=== PATIENT | male | born 1960 | race Two or more races ===

== ENCOUNTER 2020-03-30 06:30 | Outpatient (REF) | payer OTHER, SELFPAY ==
[2020-03-30 08:27] LABS: Cholesterol 113 mg/dL; HDL Cholesterol 37 mg/dL; LDL Cholesterol Calculated 67 mg/dl; Triglycerides 48 mg/dL
== END 2020-03-30 06:31 | disposition home or self-care (01) ==
LOC: HO.LAB 06:30
PROVIDERS: Visit Provider Internal Medicine
DX: E78.5 Hyperlipidemia, unspecified (principal)
CPT/HCPCS: 80061

== ENCOUNTER → 2020-06-08 08:37 | Outpatient (BNVA) | payer OTHER, SELFPAY | PROVIDERS: PCP Internal Medicine; Visit Provider Internal Medicine ==

== ENCOUNTER 2020-06-19 08:54 | Outpatient (REF) | payer OTHER, MEDICARE, SELFPAY | END 2020-06-19 08:55 | disposition home or self-care (01) | LOC: HO.LAB 08:54 | PROVIDERS: Visit Provider Internal Medicine | DX: Z20.822 Contact with and (suspected) exposure to COVID-19 (principal) | CPT/HCPCS: 36415; C9803; U0003; U0005 ==

== ENCOUNTER 2020-07-01 06:14 | Outpatient (REF) | payer OTHER, MEDICARE, SELFPAY ==
[2020-07-01 07:29] LABS: Cholesterol 112 mg/dL; HDL Cholesterol 36 mg/dL; LDL Cholesterol Calculated 66 mg/dl; Triglycerides 50 mg/dL
== END 2020-07-01 06:15 | disposition home or self-care (01) ==
LOC: HO.LAB 06:14
PROVIDERS: Visit Provider Internal Medicine
DX: E11.9 Type 2 diabetes mellitus without complications (principal)
CPT/HCPCS: 36415; 80061

== ENCOUNTER 2020-10-15 06:03 | Outpatient (REF) | payer OTHER, SELFPAY ==
[2020-10-15 07:34] LABS: Cholesterol 115 mg/dL; HDL Cholesterol 38 mg/dL; LDL Cholesterol Calculated 68 mg/dl; Triglycerides 49 mg/dL
== END 2020-10-15 06:04 | disposition home or self-care (01) ==
LOC: HO.LAB 06:03
PROVIDERS: PCP Internal Medicine; Visit Provider Internal Medicine
DX: Z00.00 Encounter for general adult medical examination without abnormal findings (principal); E11.9 Type 2 diabetes mellitus without complications
CPT/HCPCS: 36415; 80061

== ENCOUNTER → 2020-11-23 08:24 | Outpatient (BNVA) | payer OTHER, SELFPAY | PROVIDERS: PCP Internal Medicine; Referring Provider Internal Medicine; Visit Provider Internal Medicine | DX: I25.10 Atherosclerotic heart disease of native coronary artery without angina pectoris (principal); I95.1 Orthostatic hypotension; E78.5 Hyperlipidemia, unspecified; Z95.1 Presence of aortocoronary bypass graft | CPT/HCPCS: 93005 ==

== ENCOUNTER 2020-12-07 13:08 | Outpatient (REF) | payer OTHER, SELFPAY ==
--- NOTE | ~2020-12-07 | XR_ITS ---
EXAMINATION: XR CHEST CLINICAL INFORMATION: Cough COMPARISON: Previous chest x-ray September 2016 TECHNIQUE: 2 views of the chest were obtained. FINDINGS: The cardiac and mediastinal contours are stable. There are post-CABG changes. The lungs are clear. There is no pleural effusion or pneumothorax. Bony structures are normal. XR/XR chest 2V IMPRESSION: No evidence for acute disease in the chest.
== END 2020-12-07 13:09 | disposition home or self-care (01) ==
LOC: HO.HMGCX 13:08
PROVIDERS: PCP Internal Medicine; Visit Provider Nurse Practitioner Family
DX: Z13.89 Encounter for screening for other disorder (principal)
CPT/HCPCS: 71046

== ENCOUNTER 2020-12-07 13:11 | Outpatient (REF) | payer OTHER, SELFPAY | END 2020-12-07 13:12 | disposition home or self-care (01) | LOC: HO.LAB 13:11 | PROVIDERS: Visit Provider Nurse Practitioner Family | DX: Z20.822 Contact with and (suspected) exposure to COVID-19 (principal); R05 Cough | CPT/HCPCS: U0003; U0005 ==

== ENCOUNTER 2021-02-09 06:13 | Outpatient (REF) | payer OTHER, SELFPAY ==
[2021-02-09 07:02] LABS: MANUAL DIFF FLAG NO
[2021-02-09 07:13] LABS: Basophils Percent Auto 0.4 % (0-2); Eosinophils Absolute Auto 0.1 X10*3/uL (0.0-0.4); Eosinophils Percent Auto 2.9 % (0-4); Hematocrit 47.1 % (42-52); Hemoglobin 15.2 g/dl (14.0-18.0); Imm Gran Abs Auto 0.01 X10*3/uL (0.00-0.03); Imm Gran Pct Auto 0.2 % (0.0-0.4); Lymphocytes Absolute Auto 1.6 X10*3/uL (1.2-4.9); Lymphocytes Percent Auto 33.9 % (20-40); Mean Corpuscular HGB Conc 32.3 g/dl (31.0-36.0); Mean Corpuscular Hemoglobin 28.5 pg (27.0-33.0); Mean Corpuscular Volume 88.2 fL (80-98); Mean Platelet Volume 11.3 fL (9.4-12.4); Monocytes Absolute Auto 0.5 X10*3/uL (0.1-1.2); Monocytes Percent Auto 10.4 % (2-11); Neutrophils Absolute Auto 2.5 X10*3/uL (2.0-8.3); Neutrophils Percent Auto 52.2 % (45-73); Platelet Count 148 X10*3/uL (160-400); Red Blood Count 5.34 X10*6/uL (4.60-5.80); Red Cell Distribution Width 14.7 % (11.0-16.0); White Blood Count 4.8 X10*3/uL (4.8-10.8)
[2021-02-09 07:36] LABS: Alanine Aminotransferase 33 U/L (0-40); Albumin Level 4.2 g/dL (3.5-5.0); Alkaline Phosphatase 65 U/L (39-117); Anion Gap 10 (12-20); Aspartate Amino Transferase 25 U/L (5-37); Bilirubin Total 0.7 mg/dL (0.0-1.0); Blood Urea Nitrogen 15 mg/dL (9-16); Calcium 8.9 mg/dL (8.4-10.2); Carbon Dioxide 27 mmol/L (22-29); Chloride 108 mmol/L (96-108); Cholesterol 120 mg/dL; Estimated Glomerular Filt Rate > 60; Glucose Fasting 106 mg/dL (60-99); HDL Cholesterol 40 mg/dL; LDL Cholesterol Calculated 71 mg/dl; Potassium 4.4 mmol/L (3.3-5.1); Sodium 141 mmol/L (135-145); Total Protein 6.5 g/dL (6.5-8.0); Triglycerides 47 mg/dL
== END 2021-02-09 06:14 | disposition home or self-care (01) ==
LOC: HO.LAB 06:13
PROVIDERS: PCP Internal Medicine; Visit Provider Internal Medicine
DX: Z00.00 Encounter for general adult medical examination without abnormal findings (principal); E11.9 Type 2 diabetes mellitus without complications
CPT/HCPCS: 36415; 80053; 80061; 85025

== ENCOUNTER → 2021-05-17 08:08 | Outpatient (BNVA) | payer OTHER, SELFPAY | PROVIDERS: PCP Internal Medicine; Referring Provider Internal Medicine; Visit Provider Internal Medicine | DX: I25.10 Atherosclerotic heart disease of native coronary artery without angina pectoris (principal); I95.1 Orthostatic hypotension; E78.5 Hyperlipidemia, unspecified; Z95.1 Presence of aortocoronary bypass graft | CPT/HCPCS: 93005 ==

== ENCOUNTER 2021-06-14 06:00 | Outpatient (REF) | payer OTHER, SELFPAY ==
--- NOTE | ~2021-06-14 | XR_ITS ---
EXAMINATION: XR HAND, RIGHT CLINICAL INFORMATION: Pain in hand. COMPARISON: None TECHNIQUE: PA, lateral, and oblique views of the right hand. FINDINGS: There is partial amputation of proximal end of distal phalanx 2nd digit. There is no visible acute fracture or dislocation or subluxation seen. No bony erosive changes. A solitary staple is seen along the distal radial soft tissue from intervention. No soft tissue swelling seen. XR/XR hand RT 2V IMPRESSION: No abnormality seen right hand especially along the 1st metacarpal. 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
[2021-06-14 06:09] LABS: MANUAL DIFF FLAG NO
[2021-06-14 07:33] LABS: Basophils Percent Auto 0.6 % (0-2); Eosinophils Absolute Auto 0.2 X10*3/uL (0.0-0.4); Eosinophils Percent Auto 2.9 % (0-4); Hematocrit 47.1 % (42.0-52.0); Hemoglobin 15.1 g/dl (14.0-18.0); Imm Gran Abs Auto 0.01 X10*3/uL (0.00-0.03); Imm Gran Pct Auto 0.2 % (0.0-0.4); Lymphocytes Absolute Auto 1.9 X10*3/uL (1.2-4.9); Lymphocytes Percent Auto 36.3 % (20-40); Mean Corpuscular HGB Conc 32.1 g/dl (31.0-36.0); Mean Corpuscular Hemoglobin 28.3 pg (27.0-33.0); Mean Corpuscular Volume 88.4 fL (80.0-98.0); Mean Platelet Volume 11.2 fL (9.4-12.4); Monocytes Absolute Auto 0.6 X10*3/uL (0.1-1.2); Monocytes Percent Auto 11.3 % (2-11); Neutrophils Absolute Auto 2.5 x10*3/uL (2.0-8.3); Neutrophils Percent Auto 48.7 % (45-73); Platelet Count 158 X10*3/uL (160-400); Red Blood Count 5.33 X10*6/uL (4.60-5.80); Red Cell Distribution Width 14.6 % (11.0-16.0); White Blood Count 5.1 X10*3/uL (4.8-10.8)
[2021-06-14 07:50] LABS: Alanine Aminotransferase 26 U/L (0-40); Albumin Level 4.3 g/dL (3.5-5.0); Alkaline Phosphatase 59 U/L (39-117); Anion Gap 12 (12-20); Aspartate Amino Transferase 25 U/L (5-37); Bilirubin Total 0.5 mg/dL (0.0-1.0); Blood Urea Nitrogen 23 mg/dL (9-16); Calcium 9.1 mg/dL (8.4-10.2); Carbon Dioxide 26 mmol/L (22-29); Chloride 105 mmol/L (96-108); Cholesterol 118 mg/dL; Estimated Glomerular Filt Rate > 60; Glucose Fasting 94 mg/dL (60-99); HDL Cholesterol 38 mg/dL; LDL Cholesterol Calculated 70 mg/dl; Potassium 4.4 mmol/L (3.3-5.1); Sodium 139 mmol/L (135-145); Total Protein 6.7 g/dL (6.5-8.0); Triglycerides 50 mg/dL
[2021-06-14 08:15] LABS: Thyroid Stimulating Hormone 5.89 uIU/mL (0.32-4.0)
== END 2021-06-14 06:01 | disposition home or self-care (01) ==
LOC: HO.LAB 06:00
PROVIDERS: PCP Internal Medicine; Visit Provider Internal Medicine
DX: Z00.00 Encounter for general adult medical examination without abnormal findings (principal); Z13.0 Encounter for screening for diseases of the blood and blood-forming organs and certain disorders involving the immune mechanism; M79.641 Pain in right hand
CPT/HCPCS: 36415; 73120; 80053; 80061; 84443; 85025

== ENCOUNTER 2021-09-06 06:02 | Outpatient (REF) | payer OTHER, SELFPAY ==
[2021-09-06 08:02] LABS: Cholesterol 109 mg/dL; HDL Cholesterol 37 mg/dL; LDL Cholesterol Calculated 62 mg/dl; Triglycerides 51 mg/dL
== END 2021-09-06 06:03 | disposition home or self-care (01) ==
LOC: HO.LAB 06:02
PROVIDERS: PCP Internal Medicine; Visit Provider Internal Medicine
DX: Z00.00 Encounter for general adult medical examination without abnormal findings (principal)
CPT/HCPCS: 36415; 80061

== ENCOUNTER 2022-02-26 10:36 | Outpatient (REF) | payer OTHER, SELFPAY ==
[2022-02-26 12:42] LABS: Influenza A PCR NEGATIVE (Negative); Influenza B PCR NEGATIVE (Negative); Resp Syncy Virus RNA Qual PCR NEGATIVE (Negative); SARS COV2 PCR INHOUSE NEGATIVE (Negative)
== END 2022-02-26 10:37 | disposition home or self-care (01) ==
LOC: HO.LAB 10:36
PROVIDERS: Visit Provider Nurse Practitioner Acute Care
DX: R68.89 Other general symptoms and signs (principal); Z20.822 Contact with and (suspected) exposure to COVID-19
CPT/HCPCS: 0241U

== ENCOUNTER 2022-03-19 07:09 | Outpatient (REF) | payer OTHER, SELFPAY ==
[2022-03-19 08:13] LABS: Cholesterol 125 mg/dL; HDL Cholesterol 43 mg/dL; LDL Cholesterol Calculated 73 mg/dl; Triglycerides 48 mg/dL
== END 2022-03-19 07:10 | disposition home or self-care (01) ==
LOC: HO.LAB 07:09
PROVIDERS: PCP Internal Medicine; Visit Provider Internal Medicine
DX: E78.5 Hyperlipidemia, unspecified (principal)
CPT/HCPCS: 36415; 80061

== ENCOUNTER → 2022-06-28 12:18 | Outpatient (BNVA) | payer OTHER, SELFPAY | PROVIDERS: PCP Internal Medicine; Referring Provider Internal Medicine; Visit Provider Internal Medicine | DX: I25.10 Atherosclerotic heart disease of native coronary artery without angina pectoris (principal); I95.1 Orthostatic hypotension; E78.5 Hyperlipidemia, unspecified; Z95.1 Presence of aortocoronary bypass graft | CPT/HCPCS: 93005 ==

== ENCOUNTER 2022-08-12 06:06 | Outpatient (REF) | payer OTHER, SELFPAY ==
[2022-08-12 06:14] LABS: MANUAL DIFF FLAG NO
[2022-08-12 07:38] LABS: Basophils Percent Auto 0.7 % (0-2); Eosinophils Absolute Auto 0.2 X10*3/uL (0.0-0.4); Hematocrit 46.3 % (42.0-52.0); Hemoglobin 15.3 g/dl (14.0-18.0); Imm Gran Abs Auto 0.02 X10*3/uL (0.00-0.03); Imm Gran Pct Auto 0.4 % (0.0-0.4); Lymphocytes Absolute Auto 1.6 X10*3/uL (1.2-4.9); Lymphocytes Percent Auto 28.9 % (20-40); Mean Corpuscular Volume 87.9 fL (80.0-98.0); Mean Platelet Volume 10.6 fL (9.4-12.4); Monocytes Absolute Auto 0.5 X10*3/uL (0.1-1.2); Monocytes Percent Auto 9.5 % (2-11); Neutrophils Absolute Auto 3.1 x10*3/uL (2.0-8.3); Neutrophils Percent Auto 57.5 % (45-73); Platelet Count 147 X10*3/uL (160-400); Red Blood Count 5.27 X10*6/uL (4.60-5.80); Red Cell Distribution Width 14.6 % (11.0-16.0); White Blood Count 5.4 X10*3/uL (4.8-10.8)
[2022-08-12 08:18] LABS: Alanine Aminotransferase 26 U/L (0-40); Albumin Level 4.1 g/dL (3.5-5.0); Alkaline Phosphatase 53 U/L (39-117); Anion Gap 12 (12-20); Aspartate Amino Transferase 22 U/L (5-37); Bilirubin Total 0.6 mg/dL (0.0-1.0); Blood Urea Nitrogen 15 mg/dL (9-16); Calcium 8.7 mg/dL (8.4-10.2); Carbon Dioxide 25 mmol/L (22-29); Chloride 106 mmol/L (96-108); Cholesterol 124 mg/dL; Estimated Glomerular Filt Rate > 60; Glucose Fasting 98 mg/dL (60-99); HDL Cholesterol 43 mg/dL; LDL Cholesterol Calculated 72 mg/dl; Potassium 4.2 mmol/L (3.3-5.1); Sodium 139 mmol/L (135-145); Triglycerides 47 mg/dL
[2022-08-12 08:22] LABS: Prostate Specific Antigen Scr 0.84 ng/mL (<0.05-4.0); Thyroid Stimulating Hormone 3.83 uIU/mL (0.32-4.0)
== END 2022-08-12 06:07 | disposition home or self-care (01) ==
LOC: HO.LAB 06:06
PROVIDERS: PCP Internal Medicine; Visit Provider Internal Medicine
DX: Z00.00 Encounter for general adult medical examination without abnormal findings (principal); Z12.5 Encounter for screening for malignant neoplasm of prostate; N28.9 Disorder of kidney and ureter, unspecified; D64.9 Anemia, unspecified; E03.9 Hypothyroidism, unspecified; E78.5 Hyperlipidemia, unspecified
CPT/HCPCS: 36415; 80053; 80061; 84153; 84443; 85025

== ENCOUNTER 2023-01-17 06:32 | Outpatient (REF) | payer OTHER, SELFPAY ==
[2023-01-17 08:16] LABS: Cholesterol 133 mg/dL (<200); HDL Cholesterol 44 mg/dL (>40); LDL Cholesterol Calculated 78 mg/dL (<100); Triglycerides 56 mg/dL (<150)
== END 2023-01-17 06:33 | disposition home or self-care (01) ==
LOC: HO.LAB 06:32
PROVIDERS: PCP Internal Medicine; Visit Provider Internal Medicine
DX: E78.5 Hyperlipidemia, unspecified (principal)
CPT/HCPCS: 36415; 80061

== ENCOUNTER 2023-01-20 08:39 | Outpatient (AMB) | payer OTHER, SELFPAY ==
[2023-01-20 08:42] VITALS: BP 110/68; PULSE 75; O2SAT 98; BMI 26.1
--- NOTE | 2023-01-20 08:42 | MHC.PC.OV ---
Vital Signs 01/20/23 08:42 Height 5 ft 3 in Weight 147 lb 2 oz BMI 26.1 BP 110/68 Blood Pressure Location Lt brachial Position Sitting Pulse 75 Pulse Source Pulse Oximeter Pulse Oximetry (%) 98 Oxygen Delivery Method Room Air Intake Visit Reasons: 3mth f/u Chief Vendor Quality: Not Required per policy Accompanied by: Self / Same As Patient Allergies No Known Allergies Allergy (Verified 01/20/23 08:42) Medication List - Last Reconciled 01/20/23 by Ismael Dimas MD aspirin 81 mg PO DAILY atorvastatin 80 mg PO DAILY nitroglycerin 0.4 mg sublingual Q5M PRN Tobacco use date assessed: 08/03/22 Dental Screening Dental Screen Date: 01/20/23 Did you have a dental visit in the last 12 months?: Yes Did you have a dental problem in the last 6 months where you did not have access to dental care?: No Was dental information given to patient?: Patient has dentist HPI 3mth f/u HPI Details hyperlipidemia on rx; doing well; compliant [facility] Medical History Other and unspecified hyperlipidemia Orthostatic hypotension Atherosclerotic cardiovascular disease Hyperlipidemia Surgical History Status post coronary artery bypass graft History of cardiac catheterization (~11/30/12) H/O heart bypass surgery (~02/26/13) History of tonsillectomy Family History Father Pulmonary embolism Mother Hypertension Heart disease Family/Other Diabetes CAD (coronary artery disease) Social History Housing: House Alcohol intake: current Alcohol intake frequency: holidays/special occasions only Alcohol type: wine Patient Tobacco Use Status: Never used Tobacco e-Cigarette/Vaping Use: Never Used Second Hand Smoke Exposure: No service: No Current occupational status: disabled Cognitive needs: No Hearing needs: No Vision needs: Yes Questionnaire PHQ-9 Over the last 2 weeks, how often have you been bothered by any of the following problems? 1. Little interest or pleasure in doing things: not at all 2. Feeling down, depressed, or hopeless: not at all 3. Trouble falling or staying asleep, or sleeping too much: not at all 4. Feeling tired or having little energy: not at all 5. Poor appetite or overeating: not at all 6. Feeling bad about yourself - or that you are a failure or have let yourself or your family down: not at all 7. Trouble concentrating on things, such as reading the newspaper or watching television: not at all 8. Moving or speaking so slowly that other people could have noticed. Or the opposite - being so fidgety or restless that you have been moving around a lot more than usual: not at all 9. Thoughts that you would be better off or of hurting yourself in some way: not at all Total score: 0 Depression Screening Interpretation: Negative Source: Developed by Drs. Chidi Carrillo, Abhilash Nieves and colleagues, with an educational iris from [employer]. Thrive Questionnaire Date Thrive assessed: 07/13/22 AUDIT C Alcohol Use Questionnaire (AUDIT-C) 1. How often do you have a drink containing alcohol?: Never Total Score: 0 Score Reviewed/Action Taken: Yes CARISSA-7 AMB Questionnaire CARISSA-7 Date CARISSA - 7 assessed: 08/03/22 Source: Developed by Drs. Chidi Carrillo, Annette Paulino, Abhilash Monteiro and colleagues, with an educational iris from [employer]. Review of Systems Const Denies chills, Denies headache(s) and Denies weight loss ENT Denies headache(s) Card Denies chest pain, Denies syncope, Denies irregular heart rhythm and Denies dyspnea Resp Denies chest congestion, Denies cough and Denies dyspnea GI Denies abdominal pain, Denies change in stool character, Denies nausea and Denies vomiting Musc Denies deformity and Denies joint swelling Neuro Denies syncope and Denies headache(s) Physical exam (Primary Care) Vital Signs: Last Vital Signs Pulse 75 01/20/23 08:42 BP 110/68 01/20/23 08:42 Pulse Ox 98 01/20/23 08:42 Oxygen Delivery Method Room Air 01/20/23 08:42 BMI result Body Mass Index 26.1 Tobacco/Smoking Status: Tobacco use Status Tobacco use date assessed 08/03/22 01/20/23 08:47 Patient Tobacco Use Status Never used Tobacco 01/20/23 08:47 e-Cigarette/Vaping Use Never Used 01/20/23 08:47 PHQ-9: PHQ-9 Score PHQ-9: Total score 0 01/20/23 08:47 Depression Screening Interpretation: Negative Thrive Assessment: Date of Thrive Assessment Date Thrive assessed 07/13/22 01/20/23 08:47 Const General: cooperative, comfortable, no acute distress and alert Neck Neck: Yes no lymphadenopathy Thyroid: Thyroid normal Resp Effort & Inspection: normal respiratory effort Auscultation: clear to auscultation bilaterally Percussion: percussion normal Cardio Jugular venous distension: no JVD Palpation: normal PMI Rate: regular rate Rhythm: regular rhythm Heart sounds: S1 normal heart sound present and S2 normal heart sound present GI Inspection: Yes normal to inspection Palpation (GI): No hepatosplenomegaly present Skin General skin exam: no rashes or lesions noted Extrem General: Yes no clubbing, cyanosis or edema Assessment and Plan Assessment & Plan (1) Other and unspecified hyperlipidemia: Code(s): E78.5 - Hyperlipidemia, unspecified Plan: stable; samee rx Orders: Orders Lipid Panel Today E78.5 - Hyperlipidemia, unspecified Coding Level of Care Code Est Pt Level 3 (91121) Diagnoses Other and unspecified hyperlipidemia E78.5
== END 2023-01-20 08:56 | disposition home or self-care (01) ==
PROVIDERS: PCP Internal Medicine; Visit Provider Internal Medicine
DX: E78.5 Hyperlipidemia, unspecified (principal)
CPT/HCPCS: 99213

== ENCOUNTER 2023-02-13 08:49 | Outpatient (AMB) | payer OTHER, SELFPAY ==
--- NOTE | 2023-02-13 08:57 | AM.OFFVISNUR ---
Intake Intake Visit Reasons: Flu shot Allergies No Known Allergies Allergy (Verified 01/20/23 08:42) Office Procedures Flu Questionnaire Does the patient have a severe egg allergy?: No Does the patient have severe life threatening allergies?: No Does the patient have a fever or illness today?: No Has the patient ever had Guillain-[place] Syndrome?: No Has the patient ever had any past reaction to a flu shot?: No Immunizations flu vacc [id number] 6mos up(PF) 60 mcg(15 mcgx4)/0.5 mL IM syringe Performing Provider: Ismael Dimas MD Performing Location: [facility] Administered by: Rose Peters RN on 02/13/23 08:57 Dose Route Admin Location Dispensed Lot Number Expiration Date NDC Automatic Transmission Mechanic 0.5 mL IM Left Deltoid 0.5 mL [id number] 11/12/23 55818-005-75 [employer] VIS Given Date VIS Provided VIS Publication Date 02/13/23 Single Vaccine 20 Eligibility Eligibility Date Funding Source Not [facility] Eligible 02/13/23 Private Coding Assessment & Plan Assessment & Plan Orders: Orders Influenza [id number] Immunization Today Z23 - Encounter for immunization
== END 2023-02-13 08:59 | disposition home or self-care (01) ==
PROVIDERS: PCP Internal Medicine; Visit Provider Internal Medicine
DX: Z23 Encounter for immunization (principal)
CPT/HCPCS: 90471; 90686

== ENCOUNTER 2023-04-20 09:01 | Outpatient (REF) | payer OTHER, SELFPAY ==
[2023-04-20 10:34] LABS: Cholesterol 115 mg/dL (<200); HDL Cholesterol 38 mg/dL (>40); LDL Cholesterol Calculated 69 mg/dL (<100); Triglycerides 41 mg/dL (<150)
== END 2023-04-20 09:02 | disposition home or self-care (01) ==
LOC: HO.LAB 09:01
PROVIDERS: PCP Internal Medicine; Visit Provider Internal Medicine
DX: E78.5 Hyperlipidemia, unspecified (principal)
CPT/HCPCS: 36415; 80061

== ENCOUNTER 2023-04-24 08:43 | Outpatient (AMB) | payer OTHER, SELFPAY ==
[2023-04-24 08:45] VITALS: BP 116/62; PULSE 80; O2SAT 99; BMI 26.2
--- NOTE | 2023-04-24 08:45 | MHC.PC.OV ---
Vital Signs 04/24/23 08:45 Height 5 ft 3 in Weight 148 lb BMI 26.2 BP 116/62 Blood Pressure Location Lt brachial Position Sitting Pulse 80 Pulse Source Pulse Oximeter Pulse Oximetry (%) 99 Oxygen Delivery Method Room Air Intake Visit Reasons: 3mth f/u Photography Coordinator Required: No Paediatric Physiotherapist: Not Required per policy Accompanied by: Self / Same As Patient Allergies No Known Allergies Allergy (Verified 01/20/23 08:42) Tobacco use date assessed: 08/03/22 Dental Screening Dental Screen Date: 04/24/23 Did you have a dental visit in the last 12 months?: Yes Did you have a dental problem in the last 6 months where you did not have access to dental care?: No Was dental information given to patient?: Patient has dentist HPI 3mth f/u HPI Details Hyperlipidemia on rx; doing well; compliant [facility] Medical History Other and unspecified hyperlipidemia Orthostatic hypotension Atherosclerotic cardiovascular disease Hyperlipidemia Surgical History Status post coronary artery bypass graft History of cardiac catheterization (~11/30/12) H/O heart bypass surgery (~02/26/13) History of tonsillectomy Family History Father Pulmonary embolism Mother Hypertension Heart disease Family/Other Diabetes CAD (coronary artery disease) Social History Housing: House Alcohol intake: current Alcohol intake frequency: holidays/special occasions only Alcohol type: wine Patient Tobacco Use Status: Never used Tobacco e-Cigarette/Vaping Use: Never Used Second Hand Smoke Exposure: No service: No Current occupational status: disabled Cognitive needs: No Hearing needs: No Vision needs: Yes Questionnaire Thrive Questionnaire Date Thrive assessed: 07/13/22 CARISSA-7 AMB Questionnaire CARISSA-7 Date CARISSA - 7 assessed: 08/03/22 Source: Developed by Drs. Chidi Carrillo, Annette Paulino, Abhilash Monteiro and colleagues, with an educational iris from [employer]. Review of Systems Const Denies chills, Denies headache(s) and Denies weight loss ENT Denies headache(s) Card Denies chest pain, Denies syncope, Denies irregular heart rhythm and Denies dyspnea Resp Denies chest congestion, Denies cough and Denies dyspnea GI Denies abdominal pain, Denies change in stool character, Denies nausea and Denies vomiting Musc Denies deformity and Denies joint swelling Neuro Denies syncope and Denies headache(s) Physical exam (Primary Care) Vital Signs: Last Vital Signs Pulse 80 04/24/23 08:45 BP 116/62 04/24/23 08:45 Pulse Ox 99 04/24/23 08:45 Oxygen Delivery Method Room Air 04/24/23 08:45 BMI result Body Mass Index 26.2 Tobacco/Smoking Status: Tobacco use Status Tobacco use date assessed 08/03/22 04/24/23 08:45 Patient Tobacco Use Status Never used Tobacco 04/24/23 08:45 e-Cigarette/Vaping Use Never Used 04/24/23 08:45 Thrive Assessment: Date of Thrive Assessment Date Thrive assessed 07/13/22 04/24/23 08:45 Const General: cooperative, comfortable, no acute distress and alert Neck Neck: Yes no lymphadenopathy Thyroid: Thyroid normal Resp Effort & Inspection: normal respiratory effort Auscultation: clear to auscultation bilaterally Percussion: percussion normal Cardio Jugular venous distension: no JVD Palpation: normal PMI Rate: regular rate Rhythm: regular rhythm Heart sounds: S1 normal heart sound present and S2 normal heart sound present GI Inspection: Yes normal to inspection Palpation (GI): No hepatosplenomegaly present Skin General skin exam: no rashes or lesions noted Extrem General: Yes no clubbing, cyanosis or edema Assessment and Plan Assessment & Plan (1) Hyperlipidemia: Code(s): E78.5 - Hyperlipidemia, unspecified Plan: stable; same rx Orders: Orders Lipid Panel Today E78.5 - Hyperlipidemia, unspecified Coding Level of Care Code Est Pt Level 3 (48048) Diagnoses Hyperlipidemia E78.5
== END 2023-04-24 08:57 | disposition home or self-care (01) ==
PROVIDERS: PCP Internal Medicine; Visit Provider Internal Medicine
DX: E78.5 Hyperlipidemia, unspecified (principal)
CPT/HCPCS: 99213

== ENCOUNTER 2023-07-06 09:39 | Outpatient (AMB) | payer OTHER, SELFPAY ==
--- NOTE | 2023-07-06 09:44 | A.OFFVIS_ITS ---
Intake Vital Signs 07/06/23 09:45 Height 5 ft 3 in Weight 149 lb 7.574 oz BMI 26.5 BP 110/68 Blood Pressure Location Lt brachial Position Sitting Pulse 76 Pulse Source Pulse Oximeter Pulse Oximetry (%) 100 Oxygen Delivery Method Room Air Intake Visit Reasons: 1 year follow up Intake Note: pt presents for a 1 year follow up with EKG Allergies No Known Allergies Allergy (Verified 07/06/23 09:50) Medication List - Last Reconciled 07/06/23 by Carlito Garland MD aspirin 81 mg PO DAILY atorvastatin 80 mg PO DAILY nitroglycerin 0.4 mg sublingual Q5M PRN HPI HPI Comments History of Present Illness Details Galo returns for follow-up regarding coronary disease. Overall, he is doing fine. No cardiac symptoms whatsoever. PFS Medical History Other and unspecified hyperlipidemia Orthostatic hypotension Atherosclerotic cardiovascular disease Hyperlipidemia Surgical History Status post coronary artery bypass graft History of cardiac catheterization (~11/30/12) H/O heart bypass surgery (~02/26/13) History of tonsillectomy Family History Father Pulmonary embolism Mother Hypertension Heart disease Family/Other Diabetes CAD (coronary artery disease) Social History Housing: House Alcohol intake: current Alcohol intake frequency: holidays/special occasions only Alcohol type: wine Patient Tobacco Use Status: Never used Tobacco e-Cigarette/Vaping Use: Never Used Second Hand Smoke Exposure: No service: No Current occupational status: disabled Cognitive needs: No Hearing needs: No Vision needs: Yes Review of Systems Const All systems reviewed & are unremarkable except as noted in HPI and below Reports as per HPI and Reports no additional complaints Eyes Reports as per HPI and Denies no additional complaints ENT Denies no additional complaints and Reports as per HPI Card Denies as per HPI, Denies no additional complaints, Denies acrocyanosis, Denies chest pain, Denies chest pain at rest, Denies chest pain with activity, Denies diaphoresis, Denies syncope, Denies rapid heart rate, Denies pedal edema, Denies edema, Denies irregular heart rhythm, Denies claudication, Denies leg ulcers, Denies leg edema, Denies lightheadedness, Denies radiating jaw, neck or arm pain, Denies palpitations, Denies dyspnea, Denies dyspnea on exertion, Denies orthopnea, Denies paroxysmal nocturnal dyspnea, Denies slow heart rate and Denies other Resp Denies dyspnea and Denies dyspnea on exertion GI Reports as per HPI and Denies no additional complaints Reports no additional complaints and Reports as per HPI Musc Reports no additional complaints and Reports as per HPI Skin/Breast Reports system reviewed and no additional complaints, except as documented Neuro Denies syncope Psych Reports no additional complaints and Reports as per HPI Endo Denies palpitations [place]/Lymph Reports no additional complaints and Reports as per HPI Aller/Immun Reports no additional complaints and Reports as per HPI Physical Exam Vital Signs: Last Vital Signs Pulse 76 07/06/23 09:45 BP 110/68 07/06/23 09:45 Pulse Ox 100 07/06/23 09:45 Oxygen Delivery Method Room Air 07/06/23 09:45 BMI result Body Mass Index 26.5 Const General: comfortable and no acute distress Orientation/consciousness: patient oriented x3 HEENT Other: Unremarkable Head: Yes normal to inspection Neck Neck: Yes normal visual inspection Chest Chest palpation & inspection: normal inspection of the chest Resp Auscultation: clear to auscultation bilaterally Cardio Palpation: normal PMI Heart sounds: S1 normal heart sound present, S2 normal heart sound present, no gallops, no murmurs and no rubs GI Palpation (GI): Soft to palpation Back/Spine/Pelvis Other: unremarkable Skin General skin exam: no rashes or lesions noted Neuro General: patient oriented x3 Extrem General: Yes normal to inspection Psych Mental Status: mental status grossly normal Office Procedures EKG Details: EKG with sinus rhythm at 70/Min; no significant ST-T changes and otherwise unremarkable[place] [id number], Complete Assessment & Plan Assessment & Plan (1) Atherosclerotic cardiovascular disease: Code(s): I25.10 - Atherosclerotic heart disease of [place] coronary artery without angina pectoris (2) Status post coronary artery bypass graft: Code(s): Z95.1 - Presence of aortocoronary bypass graft (3) Orthostatic hypotension: Code(s): I95.1 - Orthostatic hypotension (4) Other and unspecified hyperlipidemia: Code(s): E78.5 - Hyperlipidemia, unspecified Plan Cardiac data- Myocardial perfusion imaging study from 2018 with likely normal perfusion. Echocardiogram from 2020 shows normal LVEF at 60-65% and mild mitral regurgitation. Overall, stable. Continue aspirin, statins. Lipids are well controlled. He has had syncope in the past and also runs lowish blood pressures. Hence, beta-blockers discontinued in the past. We will see him in 1 year. In the interim, he will call with concerns. Coding Level of Care Code Est Pt Level 3 (86316) Diagnoses Atherosclerotic cardiovascular disease I25.10 Status post coronary artery bypass graft Z95.1 Orthostatic hypotension I95.1 Other and unspecified hyperlipidemia E78.5 CPT Codes EKG - CPT: [id number], Complete ([id number])
[2023-07-06 09:45] VITALS: BP 110/68; PULSE 76; O2SAT 100; BMI 26.5
== END 2023-07-06 10:03 | disposition home or self-care (01) ==
PROVIDERS: PCP Internal Medicine; Visit Provider Internal Medicine
DX: I25.10 Atherosclerotic heart disease of native coronary artery without angina pectoris (principal); Z95.1 Presence of aortocoronary bypass graft; I95.1 Orthostatic hypotension; E78.5 Hyperlipidemia, unspecified
CPT/HCPCS: 93010; 99213

== ENCOUNTER → 2023-07-06 09:39 | Outpatient (BNVA) | payer OTHER, SELFPAY | PROVIDERS: PCP Internal Medicine; Visit Provider Internal Medicine | DX: I25.10 Atherosclerotic heart disease of native coronary artery without angina pectoris (principal); I95.1 Orthostatic hypotension; E78.5 Hyperlipidemia, unspecified; Z95.1 Presence of aortocoronary bypass graft; Z79.82 Long term (current) use of aspirin; Z79.899 Other long term (current) drug therapy | CPT/HCPCS: 93005 ==

== ENCOUNTER 2023-07-20 05:59 | Outpatient (REF) | payer OTHER, SELFPAY ==
[2023-07-20 08:18] LABS: Cholesterol 111 mg/dL (<200); HDL Cholesterol 39 mg/dL (>40); LDL Cholesterol Calculated 64 mg/dL (<100); Triglycerides 42 mg/dL (<150)
== END 2023-07-20 06:00 | disposition home or self-care (01) ==
LOC: HO.LAB 05:59
PROVIDERS: PCP Internal Medicine; Visit Provider Internal Medicine
DX: E78.5 Hyperlipidemia, unspecified (principal)
CPT/HCPCS: 36415; 80061

== ENCOUNTER 2023-07-24 09:38 | Outpatient (AMB) | payer OTHER, MEDICAID, SELFPAY ==
[2023-07-24 09:42] VITALS: BP 104/62; PULSE 70; O2SAT 98; BMI 26.4
--- NOTE | 2023-07-24 09:42 | A.OFFPC_ITS ---
Vital Signs 07/24/23 09:42 Height 5 ft 3 in Weight 149 lb BMI 26.4 BP 104/62 Blood Pressure Location Lt brachial Position Sitting Pulse 70 Pulse Source Pulse Oximeter Pulse Oximetry (%) 98 Oxygen Delivery Method Room Air Intake Visit Reasons: 3 Month F/U Surgical Instrument Maker Required: No Skin Installer: Not Required per policy Accompanied by: Self / Same As Patient Allergies No Known Allergies Allergy (Verified 07/24/23 09:43) Medication List - Last Reconciled 07/24/23 by Ismael Dimas MD aspirin 81 mg PO DAILY atorvastatin 80 mg PO DAILY nitroglycerin 0.4 mg sublingual Q5M PRN Tobacco use date assessed: 07/24/23 Dental Screening Dental Screen Date: 07/24/23 Did you have a dental visit in the last 12 months?: Yes Did you have a dental problem in the last 6 months where you did not have access to dental care?: No Was dental information given to patient?: Patient has dentist HPI 3 Month F/U HPI Details hyperlip on rx; doing well and compliant [facility] Medical History Other and unspecified hyperlipidemia Orthostatic hypotension Atherosclerotic cardiovascular disease Hyperlipidemia Surgical History Status post coronary artery bypass graft History of cardiac catheterization (~11/30/12) H/O heart bypass surgery (~02/26/13) History of tonsillectomy Family History Father Pulmonary embolism Mother Hypertension Heart disease Family/Other Diabetes CAD (coronary artery disease) Social History Housing: House Alcohol intake: current Alcohol intake frequency: holidays/special occasions only Alcohol type: wine Patient Tobacco Use Status: Never used Tobacco e-Cigarette/Vaping Use: Never Used Second Hand Smoke Exposure: No service: No Current occupational status: disabled Cognitive needs: No Hearing needs: No Vision needs: Yes Questionnaire PHQ-9 Over the last 2 weeks, how often have you been bothered by any of the following problems? 1. Little interest or pleasure in doing things: not at all 2. Feeling down, depressed, or hopeless: not at all 3. Trouble falling or staying asleep, or sleeping too much: not at all 4. Feeling tired or having little energy: not at all 5. Poor appetite or overeating: not at all 6. Feeling bad about yourself - or that you are a failure or have let yourself or your family down: not at all 7. Trouble concentrating on things, such as reading the newspaper or watching television: not at all 8. Moving or speaking so slowly that other people could have noticed. Or the opposite - being so fidgety or restless that you have been moving around a lot more than usual: not at all 9. Thoughts that you would be better off or of hurting yourself in some way: not at all Total score: 0 Depression Screening Interpretation: Negative Depression Screening Done: Yes Source: Developed by Drs. Chidi Carrillo, Annette Paulino, Abhilash Monteiro and colleagues, with an educational iris from [employer]. Thrive Questionnaire Date Thrive assessed: 07/24/23 I am a: Patient What is your living situation today?: I have a steady place to live Within the past 12 months, did the food you bought not last and you didn't have the money to get more?: Never true Within the past 12 months, did you worry whether your food would run out before you got money to buy more?: Never true Do you have trouble paying for medicines?: No Do you have trouble getting transportation to medical appointments?: No Do you have trouble paying your heating and electricity bill?: No Do you have trouble taking care of your child, family member or friend?: No Do you have trouble with day-to-day activities such as bathing, preparing meals, shopping, managing finances, etc.?: No Are you currently unemployed and looking for a job?: No Are you interested in more education?: No Please select the resources that you would like help with: None THRIVE Score: 0 AUDIT C Alcohol Use Questionnaire (AUDIT-C) 1. How often do you have a drink containing alcohol?: Never Total Score: 0 Score Reviewed/Action Taken: Yes CARISSA-7 AMB Questionnaire CARISSA-7 Date CARISSA - 7 assessed: 07/24/23 Feeling nervous, anxious, or on edge: 0 = Not at all Not being able to stop or control worryin = Not at all Worrying too much about different things: 0 = Not at all Trouble relaxin = Not at all Being so restless that it is hard to sit still: 0 = Not at all Becoming easily annoyed or irritable: 0 = Not at all Feeling afraid as if something awful might happen: 0 = Not at all Total CARISSA-7 score (0-4 normal; 5-9 mild; 10-14 moderate; 15-21 severe): 0 Source: Developed by Drs. Chidi Carrillo, Annette Paulino, Abhilash Monteiro and colleagues, with an educational iris from [employer]. Review of Systems Const Denies chills, Denies headache(s) and Denies weight loss ENT Denies headache(s) Card Denies chest pain, Denies syncope, Denies irregular heart rhythm and Denies dyspnea Resp Denies chest congestion, Denies cough and Denies dyspnea GI Denies abdominal pain, Denies change in stool character, Denies nausea and Denies vomiting Musc Denies deformity and Denies joint swelling Neuro Denies syncope and Denies headache(s) Physical exam (Primary Care) Vital Signs: Last Vital Signs Pulse 70 07/24/23 09:42 BP 104/62 07/24/23 09:42 Pulse Ox 98 07/24/23 09:42 Oxygen Delivery Method Room Air 07/24/23 09:42 BMI result Body Mass Index 26.4 Tobacco/Smoking Status: Tobacco use Status Tobacco use date assessed 07/24/23 07/24/23 09:44 Patient Tobacco Use Status Never used Tobacco 07/24/23 09:44 e-Cigarette/Vaping Use Never Used 07/24/23 09:44 PHQ-9: PHQ-9 Score PHQ-9: Total score 0 07/24/23 09:44 Depression Screening Interpretation: Negative Thrive Assessment: Date of Thrive Assessment Date Thrive assessed 07/24/23 07/24/23 09:44 Const General: cooperative, comfortable, no acute distress and alert Neck Neck: Yes no lymphadenopathy Thyroid: Thyroid normal Resp Effort & Inspection: normal respiratory effort Auscultation: clear to auscultation bilaterally Percussion: percussion normal Cardio Jugular venous distension: no JVD Palpation: normal PMI Rate: regular rate Rhythm: regular rhythm Heart sounds: S1 normal heart sound present and S2 normal heart sound present GI Inspection: Yes normal to inspection Palpation (GI): No hepatosplenomegaly present Skin General skin exam: no rashes or lesions noted Extrem General: Yes no clubbing, cyanosis or edema Assessment and Plan Assessment & Plan (1) Hyperlipidemia: Code(s): E78.5 - Hyperlipidemia, unspecified Plan: stable; same rx Orders: Orders Lipid Panel Today E78.5 - Hyperlipidemia, unspecified Complete Blood Count Auto Diff Today D64.9 - Anemia, unspecified Comprehensive [place]. Panel Fast Today N28.9 - Disorder of kidney and ureter, unspecified Coding Level of Care Code Est Pt Level 3 (42317) Diagnoses Hyperlipidemia E78.5
== END 2023-07-24 09:57 | disposition home or self-care (01) ==
PROVIDERS: PCP Internal Medicine; Visit Provider Internal Medicine
DX: E78.5 Hyperlipidemia, unspecified (principal)
CPT/HCPCS: 99213

== ENCOUNTER 2023-08-09 12:57 | Outpatient (AMB) | payer OTHER, SELFPAY ==
[2023-08-09 12:59] VITALS: BP 108/60; PULSE 70; O2SAT 98; BMI 26.4
--- NOTE | 2023-08-09 12:59 | A.OFFPC_ITS ---
Vital Signs 08/09/23 12:59 Height 5 ft 3 in Weight 149 lb BMI 26.4 BP 108/60 Blood Pressure Location Lt brachial Position Sitting Pulse 70 Pulse Source Pulse Oximeter Pulse Oximetry (%) 98 Oxygen Delivery Method Room Air Intake Visit Reasons: PE Specifications Checker Required: No It Support Technician: Not Required per policy Accompanied by: Self / Same As Patient Allergies No Known Allergies Allergy (Verified 08/09/23 13:00) Medication List - Last Reconciled 08/09/23 by Ismael Dimas MD aspirin 81 mg PO DAILY atorvastatin 80 mg PO DAILY nitroglycerin 0.4 mg sublingual Q5M PRN Tobacco use date assessed: 07/24/23 Dental Screening Dental Screen Date: 08/09/23 Did you have a dental visit in the last 12 months?: Yes Did you have a dental problem in the last 6 months where you did not have access to dental care?: No Was dental information given to patient?: Patient has dentist HPI PE HPI Details CAD s/p CABG and hyperlip; doing well PFSH Medical History Other and unspecified hyperlipidemia Orthostatic hypotension Atherosclerotic cardiovascular disease Hyperlipidemia Surgical History Status post coronary artery bypass graft History of cardiac catheterization (~11/30/12) H/O heart bypass surgery (~02/26/13) History of tonsillectomy Family History Father Pulmonary embolism Mother Hypertension Heart disease Family/Other Diabetes CAD (coronary artery disease) Social History Housing: House Alcohol intake: current Alcohol intake frequency: holidays/special occasions only Alcohol type: wine Patient Tobacco Use Status: Never used Tobacco e-Cigarette/Vaping Use: Never Used Second Hand Smoke Exposure: No service: No Current occupational status: disabled Cognitive needs: No Hearing needs: No Vision needs: Yes Questionnaire Thrive Questionnaire Date Thrive assessed: 07/24/23 CARISSA-7 AMB Questionnaire CARISSA-7 Date CARISSA - 7 assessed: 07/24/23 Source: Developed by Drs. Chidi Carrillo, Annette Paulino, Abhilash Monteiro and colleagues, with an educational iris from [employer]. Review of Systems Const Denies chills, Denies fatigue, Denies headache(s) and Denies weight loss Eyes Denies change in vision, Denies diplopia and Denies eye pain ENT Denies vertigo, Denies dizziness, Denies headache(s) and Denies nasal discharge Card Denies chest pain, Denies rapid heart rate and Denies dyspnea on exertion Resp Denies chest congestion, Denies cough, Denies pain with cough and Denies dyspnea on exertion GI Denies abdominal pain, Denies hematochezia and Denies change in bowel habits Musc Denies myalgias, Denies arthralgias and Denies joint swelling Skin/Breast Denies lesions and Denies unusual bruising Neuro Denies vertigo, Denies dizziness, Denies headache(s) and Denies focal weakness Endo Denies fatigue Physical exam (Primary Care) Vital Signs: Last Vital Signs Pulse 70 08/09/23 12:59 BP 108/60 08/09/23 12:59 Pulse Ox 98 08/09/23 12:59 Oxygen Delivery Method Room Air 08/09/23 12:59 BMI result Body Mass Index 26.4 Tobacco/Smoking Status: Tobacco use Status Tobacco use date assessed 07/24/23 08/09/23 13:00 Patient Tobacco Use Status Never used Tobacco 08/09/23 13:00 e-Cigarette/Vaping Use Never Used 08/09/23 13:00 Thrive Assessment: Date of Thrive Assessment Date Thrive assessed 07/24/23 08/09/23 13:00 Const General: cooperative, healthy appearing and no acute distress Orientation/consciousness: oriented to person, oriented to place and oriented to time [facility] Head: Yes normal to inspection, Yes normocephalic and Yes atraumatic Mouth: Normal oral and palatal mucosa present and tongue normal Throat: Yes posterior oropharynx normal and Yes uvula midline Eyes General: appearance normal, both eyes and all related structures Neck Neck: Yes normal visual inspection, Yes full ROM and Yes no lymphadenopathy Thyroid: Thyroid normal Carotids: normal carotid upstroke Chest Chest palpation & inspection: normal inspection of the chest Resp Effort & Inspection: normal respiratory effort and able to speak in complete sentences Auscultation: clear to auscultation bilaterally Cardio Jugular venous distension: no JVD Palpation: normal PMI Rate: regular rate Rhythm: regular rhythm Heart sounds: S1 normal heart sound present and S2 normal heart sound present GI Inspection: Yes normal to inspection Palpation (GI): Soft to palpation and No hepatosplenomegaly present Auscultation: normal bowel sounds General: Yes no CVA tenderness Back/Spine/Pelvis Back: no CVA tenderness Skin General skin exam: no rashes or lesions noted Neuro General: oriented to person, oriented to place and oriented to time Extrem General: Yes normal to inspection and Yes full ROM Assessment and Plan Assessment & Plan (1) Physical exam: Code(s): Z00.00 - Encounter for general adult medical examination without abnormal findings Plan: stable (2) Status post coronary artery bypass graft: Code(s): Z95.1 - Presence of aortocoronary bypass graft Plan: do lans (3) Hyperlipidemia: Code(s): E78.5 - Hyperlipidemia, unspecified Plan: do labs Orders: Orders XR hand RT 2V Today M79.643 - Pain in unspecified hand XR elbow LT 2V Today M25.529 - Pain in unspecified elbow Lipid Panel Today E78.5 - Hyperlipidemia, unspecified Complete Blood Count Auto Diff Today D64.9 - Anemia, unspecified Comprehensive [place]. Panel Fast Today N28.9 - Disorder of kidney and ureter, unspecified Prostate Specific Antigen Scr Today Z00.00 - Encounter for general adult medical examination without abnormal findings Coding Level of Care Code Est Pt Prev Care 40-64y(07627) Diagnoses Physical exam Z00.00 Status post coronary artery bypass graft Z95.1 Hyperlipidemia E78.5
== END 2023-08-09 13:19 | disposition home or self-care (01) ==
PROVIDERS: PCP Internal Medicine; Visit Provider Internal Medicine
DX: Z00.00 Encounter for general adult medical examination without abnormal findings (principal); Z95.1 Presence of aortocoronary bypass graft; E78.5 Hyperlipidemia, unspecified
CPT/HCPCS: 99396

== ENCOUNTER 2023-08-09 14:47 | Outpatient (REF) | payer OTHER, SELFPAY ==
--- NOTE | ~2023-08-09 | XR_ITS ---
EXAMINATION: XR HAND, RIGHT CLINICAL INFORMATION: Pain. COMPARISON: Radiographs dated 06/14/2021. TECHNIQUE: PA, lateral, and oblique views of the right hand. FINDINGS: Bony alignment and mineralization are normal. 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 No acute fracture or dislocation is seen. There is no abnormal bone erosion. The proximal and distal carpal rows are intact. A surgical clip is seen in the lateral wrist. No focal soft tissue swelling, gas or foreign body is seen. 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 No acute fracture or dislocation is seen. There is no abnormal bone erosion.
--- NOTE | ~2023-08-09 | XR_ITS ---
EXAMINATION: XR ELBOW, LEFT CLINICAL INFORMATION: Pain. COMPARISON: None available. TECHNIQUE: AP, lateral, and oblique views of the left elbow. FINDINGS: The bones and soft tissues are normal. No fracture or joint effusion. Alignment is anatomic. Joint spaces are maintained. XR/XR elbow LT 2V IMPRESSION: Normal left elbow.
== END 2023-08-09 14:48 | disposition home or self-care (01) ==
LOC: HO.XRAY 14:47
PROVIDERS: PCP Internal Medicine; Visit Provider Internal Medicine
DX: M79.641 Pain in right hand (principal); M25.522 Pain in left elbow
CPT/HCPCS: 73070; 73120

== ENCOUNTER 2023-11-28 06:07 | Outpatient (REF) | payer BC, SELFPAY ==
[2023-11-28 06:18] LABS: MANUAL DIFF FLAG NO
[2023-11-28 07:22] LABS: Basophils Percent Auto 0.7 % (0-2); Eosinophils Absolute Auto 0.2 X10*3/uL (0.0-0.4); Eosinophils Percent Auto 3.8 % (0-4); Hematocrit 45.4 % (42.0-52.0); Lymphocytes Absolute Auto 1.4 X10*3/uL (1.2-4.9); Lymphocytes Percent Auto 30.4 % (20-40); Mean Corpuscular Hemoglobin 29.2 pg (27.0-33.0); Mean Corpuscular Volume 88.3 fL (80.0-98.0); Mean Platelet Volume 11.7 fL (9.4-12.4); Monocytes Absolute Auto 0.5 X10*3/uL (0.1-1.2); Monocytes Percent Auto 11.9 % (2-11); Neutrophils Absolute Auto 2.4 x10*3/uL (2.0-8.3); Neutrophils Percent Auto 53.2 % (45-73); Platelet Count 142 X10*3/uL (160-400); Red Blood Count 5.14 X10*6/uL (4.60-5.80); Red Cell Distribution Width 14.7 % (11.0-16.0); White Blood Count 4.4 X10*3/uL (4.8-10.8)
[2023-11-28 07:46] LABS: Alanine Aminotransferase 27 U/L (0-40); Albumin Level 4.1 g/dL (3.5-5.0); Alkaline Phosphatase 57 U/L (39-117); Anion Gap 12 (12-20); Aspartate Amino Transferase 22 U/L (5-37); Bilirubin Total 0.4 mg/dL (0.0-1.0); Blood Urea Nitrogen 16 mg/dL (9-16); Calcium 9.3 mg/dL (8.4-10.2); Carbon Dioxide 26 mmol/L (22-29); Chloride 106 mmol/L (96-108); Cholesterol 114 mg/dL (<200); Estimated Glomerular Filt Rate > 60; Glucose Fasting 106 mg/dL (60-99); HDL Cholesterol 42 mg/dL (>40); LDL Cholesterol Calculated 62 mg/dL (<100); Potassium 3.9 mmol/L (3.3-5.1); Sodium 140 mmol/L (135-145); Total Protein 6.4 g/dL (6.5-8.0); Triglycerides 51 mg/dL (<150)
[2023-11-28 08:49] LABS: Prostate Specific Antigen Scr 1.24 ng/mL (<0.05-4.0)
== END 2023-11-28 06:08 | disposition home or self-care (01) ==
LOC: HO.LAB 06:07
PROVIDERS: PCP Internal Medicine; Visit Provider Internal Medicine
DX: E78.5 Hyperlipidemia, unspecified (principal); Z00.00 Encounter for general adult medical examination without abnormal findings; D64.9 Anemia, unspecified; N28.9 Disorder of kidney and ureter, unspecified; Z12.5 Encounter for screening for malignant neoplasm of prostate
CPT/HCPCS: 36415; 80053; 80061; 84153; 85025

== ENCOUNTER 2023-11-28 10:36 | Outpatient (AMB) | payer BC, MEDICAID, SELFPAY ==
[2023-11-28 10:45] VITALS: BP 118/62; PULSE 69; O2SAT 95; BMI 26.8
--- NOTE | 2023-11-28 10:45 | MHC.PC.OV ---
Vital Signs 11/28/23 10:45 Height 5 ft 3 in Weight 151 lb 2 oz BMI 26.8 BP 118/62 Blood Pressure Location Lt brachial Position Sitting Pulse 69 Pulse Source Pulse Oximeter Pulse Oximetry (%) 95 Oxygen Delivery Method Room Air Intake Visit Reasons: 3mof\u Dean Of Admissions Required: No Accompanied by: Self / Same As Patient Allergies No Known Allergies Allergy (Verified 11/28/23 10:46) Medication List - Last Reconciled 11/28/23 by Ismael Dimas MD aspirin 81 mg PO DAILY atorvastatin 80 mg PO DAILY nitroglycerin 0.4 mg sublingual Q5M PRN Tobacco use date assessed: 07/24/23 Dental Screening Dental Screen Date: 08/09/23 HPI 3mof\u HPI Details hyperlipidemia on rx; doing well; compliant [facility] Medical History Other and unspecified hyperlipidemia Orthostatic hypotension Atherosclerotic cardiovascular disease Hyperlipidemia Surgical History Status post coronary artery bypass graft History of cardiac catheterization (~11/30/12) H/O heart bypass surgery (~02/26/13) History of tonsillectomy Family History Father Pulmonary embolism Mother Hypertension Heart disease Family/Other Diabetes CAD (coronary artery disease) Social History Housing: House Alcohol intake: current Alcohol intake frequency: holidays/special occasions only Alcohol type: wine Patient Tobacco Use Status: Never used Tobacco e-Cigarette/Vaping Use: Never Used Second Hand Smoke Exposure: No service: No Current occupational status: disabled Cognitive needs: No Hearing needs: No Vision needs: Yes Questionnaire Thrive Questionnaire Date Thrive assessed: 07/24/23 CARISSA-7 AMB Questionnaire CARISSA-7 Date CARISSA - 7 assessed: 07/24/23 Source: Developed by Drs. Chidi Carrillo, Annette Paulino, Abhilash Monteiro and colleagues, with an educational iris from [email or web address]. Review of Systems Const Denies chills, Denies headache(s) and Denies weight loss ENT Denies headache(s) Card Denies chest pain, Denies syncope, Denies irregular heart rhythm and Denies dyspnea Resp Denies chest congestion, Denies cough and Denies dyspnea GI Denies abdominal pain, Denies change in stool character, Denies nausea and Denies vomiting Musc Denies deformity and Denies joint swelling Neuro Denies syncope and Denies headache(s) Physical exam (Primary Care) Vital Signs: Last Vital Signs Pulse 69 11/28/23 10:45 BP 118/62 11/28/23 10:45 Pulse Ox 95 11/28/23 10:45 Oxygen Delivery Method Room Air 11/28/23 10:45 BMI result Body Mass Index 26.8 Tobacco/Smoking Status: Tobacco use Status Tobacco use date assessed 07/24/23 11/28/23 10:46 Patient Tobacco Use Status Never used Tobacco 11/28/23 10:46 e-Cigarette/Vaping Use Never Used 11/28/23 10:46 Thrive Assessment: Date of Thrive Assessment Date Thrive assessed 07/24/23 11/28/23 10:46 Const General: cooperative, comfortable, no acute distress and alert Neck Neck: Yes no lymphadenopathy Thyroid: Thyroid normal Resp Effort & Inspection: normal respiratory effort Auscultation: clear to auscultation bilaterally Percussion: percussion normal Cardio Jugular venous distension: no JVD Palpation: normal PMI Rate: regular rate Rhythm: regular rhythm Heart sounds: S1 normal heart sound present and S2 normal heart sound present GI Inspection: Yes normal to inspection Palpation (GI): No hepatosplenomegaly present Skin General skin exam: no rashes or lesions noted Extrem General: Yes no clubbing, cyanosis or edema Assessment and Plan Assessment & Plan (1) Hyperlipidemia: Code(s): E78.5 - Hyperlipidemia, unspecified Plan: stable; same rx Coding Level of Care Code Est Pt Level 3 (59472) Diagnoses Hyperlipidemia E78.5
== END 2023-11-28 10:51 | disposition home or self-care (01) ==
PROVIDERS: PCP Internal Medicine; Visit Provider Internal Medicine
DX: E78.5 Hyperlipidemia, unspecified (principal)
CPT/HCPCS: 99213

== ENCOUNTER 2024-01-01 07:37 | Day surgery (SDC) | payer BC, SELFPAY ==
[2023-12-28 13:41] VITALS: BMI 25.9
--- NOTE | 2023-12-29 09:05 | P.CONAN_ITS ---
Documented by User: Michelle Abdalla NP 12/29/23 09:07 HPI - Anesthesia Eval Consult details Narrative: 63yo M for Colonoscopy Follows [facility] cardiology yearly. Stable at 06/2023 office visit [facility] Active Problems Active Problems: All Active Problems Sinusitis (Acute) Flu-like symptoms (Acute) Paronychia of finger of right hand (Acute) Physical exam (Acute) Tinea pedis (Acute) Cough (Acute) Status post coronary artery bypass graft (Acute) Other and unspecified hyperlipidemia (Acute) Orthostatic hypotension (Acute) Atherosclerotic cardiovascular disease (Acute) Hyperlipidemia (Acute) Past Medical History Medical History (Updated 12/28/23 @ 13:46 by Llaa Leach RN) Myocardial infarction Other and unspecified hyperlipidemia Orthostatic hypotension Atherosclerotic cardiovascular disease Hyperlipidemia Family History Family History Father Pulmonary embolism Mother Hypertension Heart disease Family/Other Diabetes CAD (coronary artery disease) Surgical History Surgical History (Updated 12/28/23 @ 13:42 by Lala Leach RN) H/O colonoscopy History of cardiac catheterization (~11/30/12) H/O heart bypass surgery (~02/26/13) History of tonsillectomy Social History Social History Housing: House Alcohol intake: current Alcohol intake frequency: does not drink Alcohol type: wine Patient Tobacco Use Status: Never used Tobacco e-Cigarette/Vaping Use: Never Used Second Hand Smoke Exposure: No Use of substances other than those prescribed or required for medical reasons: No Are you DNR?: No Advance Directives: No Advance Directives Information Provided: Yes Advance Directives on File: No service: No Current occupational status: disabled Cognitive needs: No Hearing needs: No Vision needs: Yes Meds Allergies Allergy/AdvReac Type Severity Reaction Status Date / Time No Known Allergies Allergy Verified 11/28/23 10:46 Exam Height,Weight and Vital Signs: Height 5 ft 4 in Weight 68.492 kg Pertinent Lab Results Pertinent Lab Results: Laboratory Tests 11/28/23 06:17 WBC 4.4 L Hgb 15.0 Hct 45.4 Plt Count 142 L Sodium 140 Potassium 3.9 Chloride 106 Carbon Dioxide 26 BUN 16 Creatinine 0.88 Narrative Narrative: EKG 06/2023 sinus rhythm at 70/Min; no significant ST-T changes and otherwise unremarkable. Normal MS and corrected QT Myocardial perfusion imaging study from 2018 with likely normal perfusion. Echocardiogram from 2019 shows normal LVEF at 60-65% and mild mitral regurgitation. Assessment and Plan Assessment Anesthesia Assessment: Chart Reviewed Documented by User: Nany Ramos MD 01/01/24 08:10 [facility] Past Medical History Medical History (Updated 12/28/23 @ 13:46 by Lala Leach RN) Myocardial infarction Other and unspecified hyperlipidemia Orthostatic hypotension Atherosclerotic cardiovascular disease Hyperlipidemia Family History Family History Father Pulmonary embolism Mother Hypertension Heart disease Family/Other Diabetes CAD (coronary artery disease) Family history of problems with anesthesia: No Surgical History Surgical History (Updated 12/28/23 @ 13:42 by aLla Leach RN) H/O colonoscopy History of cardiac catheterization (~11/30/12) H/O heart bypass surgery (~02/26/13) History of tonsillectomy History of Problems with Anesthesia: No Social History Social History Housing: House Alcohol intake: current Alcohol intake frequency: does not drink Alcohol type: wine Patient Tobacco Use Status: Never used Tobacco e-Cigarette/Vaping Use: Never Used Second Hand Smoke Exposure: No Use of substances other than those prescribed or required for medical reasons: No Are you DNR?: No Advance Directives: No Advance Directives Information Provided: Yes Advance Directives on File: No service: No Current occupational status: disabled Cognitive needs: No Hearing needs: No Vision needs: Yes Meds Allergies Allergy/AdvReac Type Severity Reaction Status Date / Time No Known Allergies Allergy Verified 11/28/23 10:46 Exam Airway Mallampati Class: II TM Dist: >3cm Neck ROM: Full Assessment and Plan Assessment Anesthesia Assessment: Anesthesia Plan Discussed Final Anesthetic Review Family History of Problems with Anesthesia: No History of Problems with Anesthesia: No NPO: Yes ASA Class: III Final Preanesthetic Review: No Changes in Pt Med Stat, Meds/Allgs Chart Reviewed, Consent Obtained/Reviewed and Anes Risks/Benef Reviewed Patient Risk: Intermediate Procedure Risk: Low Anesthetic Plan Anesthetic Plan: MAC: Disposition: Standard PACU
[2024-01-01 08:06] VITALS: BP 128/80; PULSE 70; RESP 16; TEMP 37.1; O2SAT 98
[2024-01-01] MEDS: Lactated Ringers 1,000 ML 100 ML IVCONT (08:18)
[2024-01-01 10:43] VITALS: BP 104/69; PULSE 60; RESP 16; TEMP 36.5; O2SAT 99
--- NOTE | 2024-01-01 10:46 | PM.OP ---
Brief Operative Note Date of Service: 01/01/24 Pre-op diagnosis: Screening Post-op diagnosis: other (Diverticulosis) Procedure: Colonoscopy to the cecum and TI Surgeon: Chidi Godinez MD Anesthesia: MAC Was an Marble Setter Helper used for this Procedure?: No Estimated blood loss (mL): 0 Pathology: none sent Condition: stable Disposition: PACU
[2024-01-01 10:58] VITALS: BP 100/67; PULSE 54; RESP 16; TEMP 36.5; O2SAT 100
--- NOTE | 2024-01-01 11:24 | OP_ITS ---
DATE OF SERVICE: 01/01/2024 SURGEON: Chidi Godinez MD INDICATIONS: The patient presents for evaluation of colorectal cancer screening. Full consent has been obtained from him for this, including risks of bleeding and perforation. PREOPERATIVE DIAGNOSIS: Colorectal cancer screening. POSTOPERATIVE DIAGNOSIS: PROCEDURE PERFORMED: Colonoscopy to the cecum and terminal ileum. ESTIMATED BLOOD LOSS: COMPLICATIONS: ANESTHESIA: Monitored anesthesia care. ASSISTANTS: SPECIMENS: POSTOPERATIVE DIAGNOSES: Colorectal cancer screening, sigmoid diverticulosis, internal hemorrhoids. DESCRIPTION OF PROCEDURE: The patient was placed in the left lateral decubitus position. The digital rectal exam revealed no abnormalities. The Olympus video pediatric colonoscope was then entered into the rectum and advanced easily to the cecum. Once in the cecum, I did identify normal-appearing cecal pouch with appendiceal orifice and a normal-appearing ileocecal valve. The terminal ileum was cannulated and appeared normal. The scope was withdrawn back in the colon. The entire cecum and ileocecal valve appeared normal. The scope was slowly withdrawn assessing all mucosal surfaces carefully. Preparation was excellent. I did not visualize any sign of polyps, colitis, nor angiodysplasias. There was a mild amount of sigmoid diverticulosis. In the rectum, scope was retroflexed, visualizing internal hemorrhoids, but no other pathology. The rectal mucosa appeared normal. Scope was straightened and withdrawn from the patient. He tolerated the procedure well and was returned to the recovery area in stable condition. IMPRESSION: 1. Sigmoid diverticulosis. 2. Internal hemorrhoids. PLAN: Given today's negative colonoscopy and negative family history, I would recommend a followup colonoscopy in 10 years. He will, otherwise, see me on a p.r.n. basis. He was advised to continue his aspirin daily. MD SAJAN Kothari/VIJAY / [id number]
== END 2024-01-01 11:02 | disposition home or self-care (01) ==
PROVIDERS: PCP Internal Medicine; Visit Provider Internal Medicine
PROC: 0DJD8ZZ Inspection of Lower Intestinal Tract, Via Natural or Artificial Opening Endoscopic (ICD-10-PCS; CPT 45378; principal; 2024-01-01 09:30)
DX: Z12.11 Encounter for screening for malignant neoplasm of colon (principal); K57.30 Diverticulosis of large intestine without perforation or abscess without bleeding; K64.8 Other hemorrhoids; I25.2 Old myocardial infarction; Z79.82 Long term (current) use of aspirin
CPT/HCPCS: 45378; J2704

== ENCOUNTER 2024-03-23 07:33 | Emergency (ER) | payer BC, MEDICAID, SELFPAY ==
--- NOTE | ~2024-03-23 | US_ITS ---
EXAMINATION: US TRIPLEX LOWER EXTREMITY, RIGHT CLINICAL INFORMATION: Right lower extremity pain COMPARISON: None available. TECHNIQUE: Color-flow triplex imaging with spectral analysis and compression Doppler were performed on the right lower extremity. FINDINGS: Respiratory variation, normal compression and augmented flow are noted throughout the right lower extremity. The visualized common femoral vein, superficial femoral vein, profunda femoral vein, popliteal vein and midcalf peroneal and posterior tibial venous segments show no evidence of deep venous thrombosis. The contralateral left common femoral vein demonstrates normal respiratory variation. There is no Abreu's cyst. US/US venous duplex LE RT IMPRESSION: No evidence of deep venous thrombosis involving the right lower extremity. Electronically signed by: Ivelisse Durán MD 03/23/2024 09:01 AM [facility] COPE
--- NOTE | ~2024-03-23 | XR_ITS ---
EXAMINATION: XR KNEE, RIGHT CLINICAL INFORMATION: Pain COMPARISON: MRI right knee from 12/28/2011 TECHNIQUE: Four views of the right knee. FINDINGS: No acute fracture or dislocation. Joint spaces and alignment are maintained. Small knee joint effusion. Surgical clips along the medial knee joint. XR/XR knee RT 4V IMPRESSION: 1. No acute fracture or dislocation. 2. Small knee joint effusion. Electronically signed by: Richa Sunshine MD 03/23/2024 08:45 AM BLAYNE
[2024-03-23 07:36] VITALS: BP 120/70; PULSE 70; RESP 16; TEMP 36.2; O2SAT 99; BMI 25.1
--- NOTE | 2024-03-23 08:07 | ED_ITS ---
HPI - Extremity Injury (Lower) General Chief Complaint: Extremity Injury, Lower Stated Complaint: r knee pain Time Seen by Provider: 03/23/24 07:54 Source: patient Mode of arrival: ambulatory Limitations: no limitations History of Present Illness ED Provider: DR. Rivas HPI Narrative: 63-year-old male came in for evaluation of right knee/right leg pain started 2 weeks ago, do not recall injury or fall or trauma to the knee. No recent travel, no recent prolonged immobilization, no swelling. Able to ambulate with steady gait. Related Data Previous Rx's ?Medication ?Instructions ?Recorded nitroglycerin 0.4 mg sublingual 0.4 mg sublingual Q5M PRN chest 06/28/22 tablet pain #30 tabs atorvastatin 80 mg tablet 80 mg PO DAILY #90 tabs 06/26/23 aspirin 81 mg tablet,delayed 81 mg PO DAILY #90 tabs 08/19/23 release Allergies Allergy/AdvReac Type Severity Reaction Status Date / Time No Known Allergies Allergy Verified 03/23/24 07:38 Review of Systems Review of Systems: all other systems are reviewed and are negative Constitutional: Reports as per HPI and Reports no additional constitutional complaints Eyes: Reports as per HPI and Reports no additional eye complaints Reports system reviewed and no additional complaints, except as documented Cardiovascular: Reports as per HPI and Reports no additional cardiovascular complaints Respiratory: Reports as per HPI and Reports no additional respiratory complaints Gastrointestinal: Reports as per HPI and Reports no additional gastrointestinal complaints Genitourinary: Reports no additional female genitourinary complaints Musculoskeletal: Reports no additional musculoskeletal complaints Skin/Breast: Reports system reviewed and no additional complaints, except as docu Psychiatric: Reports no additional psychiatric complaints Endocrine: Reports no additional endocrine complaints Hematologic/Lymphatic: Reports no additional hematologic/lymphatic complaints Allergic/Immunologic: Reports no additional allergic/immunologic complaints Reports system reviewed and no additional complaints, except as documented and Reports Abnormal speech present [facility] Past Medical History Medical History Myocardial infarction Other and unspecified hyperlipidemia Orthostatic hypotension Atherosclerotic cardiovascular disease Hyperlipidemia Surgical History H/O colonoscopy History of cardiac catheterization (~11/30/12) H/O heart bypass surgery (~02/26/13) History of tonsillectomy Family History Family History Father Pulmonary embolism Mother Hypertension Heart disease Family/Other Diabetes CAD (coronary artery disease) Social History Social History Housing: House Alcohol intake: current Alcohol intake frequency: does not drink Alcohol type: wine Patient Tobacco Use Status: Never used Tobacco e-Cigarette/Vaping Use: Never Used Second Hand Smoke Exposure: No Advance Directives: No Advance Directives Information Provided: No service: No Current occupational status: disabled Cognitive needs: No Hearing needs: No Vision needs: Yes Physical Exam Vital Signs: Vital Signs: Last Vital Signs Temp 97.1 F 03/23/24 07:36 Pulse 70 03/23/24 07:36 Resp 16 03/23/24 07:36 BP 120/70 03/23/24 07:36 Pulse Ox 99 03/23/24 07:36 O2 Del Method Room Air 03/23/24 07:36 BMI result Body Mass Index 25.1 Vital signs have been reviewed and appear to be correct. Blood pressure elevated. Heart rate normal. Respiratory rate normal. Temperature normal. Oxygen saturation normal. Appearance: Alert. Oriented X3. No acute distress. Head: Normal external exam. Normocephalic. Atraumatic. No Collins signs noted. No raccoon eyes noted Eyes: PERRLA. EOMI. Conjunctiva and sclera normal. Eyelids normal. ENT: TM's Normal. Pharynx normal. Uvula midline. Moist mucous membranes. No trismus noted. No drooling noted. No muffled voice noted. Neck: Normal inspection. Neck supple. FROM. No adenopathy. Thyroid Normal. No meningeal signs. No neck mass noted. CVS: Normal heart rate and rhythm. Heart sound normal. No murmurs noted. Pulses normal throughout. Respiratory: No respiratory distress. Painless inspiration. Breath sounds nor mal. No wheezes/rales/rhonchi noted. Chest nontender. No accessory muscle usage noted or decreased air movement noted. Abdomen: Soft and nontender. Bowel sounds normal in all 4 quadrants. No distent ion noted. No organomegaly noted. No visible injury noted. Back: No CVA tenderness. Full range of motion noted. Skin: Skin warm and dry. Normal skin color. Normal skin turgor. No rashes/lesions/lacerations noted. Extremities: right lower extremity exam: No swelling, point of tenderness, no deformity, neurovascularly intact. Neuro: Oriented X 3. Cranial nerve exam: II-XII are grossly intact No motor deficit. No sensory deficit. Reflexes normal. Course Reevaluation(s) Reevaluation #1: Right lower extremity pain, x-ray shows unremarkable right knee and ultrasound ruled out DVT. Time: 10:00 Medical Decision Making Differential Diagnosis Differential Diagnoses: The differential diagnosis associated with the presentation includes ( Right knee sprain right fracture right knee dislocation right lower extremity DVT, right side kruger cyst.) Admission/Observation Consideration of admission/observation: Escalation of care including admission/observation considered Independent Interpretation I performed an independent interpretation of an: Plain X-Ray ( Right knee: No acute pathology.) and Ultrasound ( Right lower extremity: No DVT.) Radiology Impression Discussion of test interpretation with radiology: I have reviewed the radiologist's reading. Discharge Plan Discharge Clinical Impression: Knee pain, right Patient Disposition: Home, Self-Care Instructions: Arthralgia (ED) Additional Instructions: apply heating pad to the tender area, take ibuprofen 200 mg tablet over the counter every 6 hours if needed for pain. no strenuous activity Or exercise. Prescriptions: No Action atorvastatin 80 mg tablet 80 mg PO DAILY Qty: 90 8RF aspirin 81 mg tablet,delayed release (DR/EC) 81 mg PO DAILY Qty: 90 8RF nitroglycerin 0.4 mg tablet, sublingual 0.4 mg sublingual Q5M PRN (Reason: chest pain) Qty: 30 6RF Rx Instructions: do not exceed 3 doses per episode Referrals: Keyur Hightower MD [Physician] - Ismael Dimas MD [Primary Care Provider] - Print Language: Arabic
[2024-03-23 09:33] VITALS: BP 120/70; PULSE 70; RESP 16; TEMP 36.2; O2SAT 99
== END 2024-03-23 09:34 | disposition home or self-care (01) ==
PROVIDERS: Emergency Provider Emergency Medicine; PCP Internal Medicine
DX: M25.561 Pain in right knee (principal); M79.604 Pain in right leg; E78.5 Hyperlipidemia, unspecified; Z79.02 Long term (current) use of antithrombotics/antiplatelets; Z79.899 Other long term (current) drug therapy
CPT/HCPCS: 73564; 93971; 99283; 99284

== ENCOUNTER 2024-03-29 06:06 | Outpatient (REF) | payer BC, MEDICAID, SELFPAY ==
[2024-03-29 07:53] LABS: Cholesterol 116 mg/dL (<200); HDL Cholesterol 41 mg/dL (>40); LDL Cholesterol Calculated 66 mg/dL (<100); Triglycerides 49 mg/dL (<150)
== END 2024-03-29 06:07 | disposition home or self-care (01) ==
LOC: HO.LAB 06:06
PROVIDERS: PCP Internal Medicine; Visit Provider Internal Medicine
DX: E78.5 Hyperlipidemia, unspecified (principal)
CPT/HCPCS: 36415; 80061

== ENCOUNTER 2024-04-01 08:44 | Outpatient (AMB) | payer BC, MEDICAID, SELFPAY ==
[2024-04-01 08:51] VITALS: BP 100/62; PULSE 65; O2SAT 92; BMI 25.6
--- NOTE | 2024-04-01 08:51 | MHC.PC.OV ---
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 Accompanied by: Self / Same As Patient Allergies No Known Allergies Allergy (Verified 04/01/24 08:51) Medication List - Last Reconciled 04/01/24 by Ismael Dimsa MD aspirin 81 mg PO DAILY atorvastatin 80 mg PO DAILY nitroglycerin 0.4 mg sublingual Q5M PRN Tobacco use date assessed: 04/01/24 Dental Screening Dental Screen Date: 04/01/24 Did you have a dental visit in the last 12 months?: No Did you have a dental problem in the last 6 months where you did not have access to dental care?: No Was dental information given to patient?: No HPI 4 month f/u HPI Details hyperlipidemia on rx; doing well; compliant [facility] Medical History Myocardial infarction Other and unspecified hyperlipidemia Orthostatic hypotension Atherosclerotic cardiovascular disease Hyperlipidemia Surgical History H/O colonoscopy History of cardiac catheterization (~11/30/12) H/O heart bypass surgery (~02/26/13) History of tonsillectomy Family History Father Pulmonary embolism Mother Hypertension Heart disease Family/Other Diabetes CAD (coronary artery disease) Social History Housing: House Alcohol intake: current Alcohol intake frequency: does not drink Alcohol type: wine Patient Tobacco Use Status: Never used Tobacco e-Cigarette/Vaping Use: Never Used Second Hand Smoke Exposure: No service: No Current occupational status: disabled Cognitive needs: No Hearing needs: No Vision needs: Yes Questionnaire PHQ-9 Over the last 2 weeks, how often have you been bothered by any of the following problems? 1. Little interest or pleasure in doing things: not at all 2. Feeling down, depressed, or hopeless: not at all 3. Trouble falling or staying asleep, or sleeping too much: not at all 4. Feeling tired or having little energy: not at all 5. Poor appetite or overeating: not at all 6. Feeling bad about yourself - or that you are a failure or have let yourself or your family down: not at all 7. Trouble concentrating on things, such as reading the newspaper or watching television: not at all 8. Moving or speaking so slowly that other people could have noticed. Or the opposite - being so fidgety or restless that you have been moving around a lot more than usual: not at all 9. Thoughts that you would be better off or of hurting yourself in some way: not at all Total score: 0 Depression Screening Interpretation: Negative Depression Screening Done: Yes Source: Developed by Drs. Chidi Carrillo, Annette Paulino, Abhilash Monteiro and colleagues, with an educational iris from [employer]. Thrive Questionnaire Date Thrive assessed: 04/01/24 I am a: Patient What is your living situation today?: I have a steady place to live Within the past 12 months, did the food you bought not last and you didn't have the money to get more?: Never true Within the past 12 months, did you worry whether your food would run out before you got money to buy more?: Never true Do you have trouble paying for medicines?: No Do you have trouble getting transportation to medical appointments?: No Do you have trouble paying your heating and electricity bill?: No Do you have trouble taking care of your child, family member or friend?: No Do you have trouble with day-to-day activities such as bathing, preparing meals, shopping, managing finances, etc.?: No Are you currently unemployed and looking for a job?: No Are you interested in more education?: No Please select the resources that you would like help with: None Currently or been in a relationship where the following occur: No concerns reported THRIVE Score: 0 AUDIT C Alcohol Use Questionnaire (AUDIT-C) 1. How often do you have a drink containing alcohol?: Never Total Score: 0 Score Reviewed/Action Taken: Yes CARISSA-7 AMB Questionnaire CARISSA-7 Date CARISSA - 7 assessed: 04/01/24 Feeling nervous, anxious, or on edge: 0 = Not at all Not being able to stop or control worryin = Not at all Worrying too much about different things: 0 = Not at all Trouble relaxin = Not at all Being so restless that it is hard to sit still: 0 = Not at all Becoming easily annoyed or irritable: 0 = Not at all Feeling afraid as if something awful might happen: 0 = Not at all Total CARISSA-7 score (0-4 normal; 5-9 mild; 10-14 moderate; 15-21 severe): 0 Source: Developed by Drs. Chidi Carrillo, Annette Paulino, Abhilash Monteiro and colleagues, with an educational iris from [employer]. Review of Systems Const Denies chills, Denies headache(s) and Denies weight loss ENT Denies headache(s) Card Denies chest pain, Denies syncope, Denies irregular heart rhythm and Denies dyspnea Resp Denies chest congestion, Denies cough and Denies dyspnea GI Denies abdominal pain, Denies change in stool character, Denies nausea and Denies vomiting Musc Denies deformity and Denies joint swelling Neuro Denies syncope and Denies headache(s) Physical exam (Primary Care) Vital Signs: Last Vital Signs Pulse 65 04/01/24 08:51 BP 100/62 04/01/24 08:51 Pulse Ox 92 04/01/24 08:51 Oxygen Delivery Method Room Air 04/01/24 08:51 BMI result Body Mass Index 25.6 Tobacco/Smoking Status: Tobacco use Status Tobacco use date assessed 04/01/24 04/01/24 08:56 Patient Tobacco Use Status Never used Tobacco 04/01/24 08:56 e-Cigarette/Vaping Use Never Used 04/01/24 08:56 PHQ-9: PHQ-9 Score PHQ-9: Total score 0 04/01/24 08:56 Depression Screening Interpretation: Negative Thrive Assessment: Date of Thrive Assessment Date Thrive assessed 04/01/24 04/01/24 08:56 Currently or been in a relationship where the following occur: No concerns reported Const General: cooperative, comfortable, no acute distress and alert Neck Neck: Yes no lymphadenopathy Thyroid: Thyroid normal Resp Effort & Inspection: normal respiratory effort Auscultation: clear to auscultation bilaterally Percussion: percussion normal Cardio Jugular venous distension: no JVD Palpation: normal PMI Rate: regular rate Rhythm: regular rhythm Heart sounds: S1 normal heart sound present and S2 normal heart sound present GI Inspection: Yes normal to inspection Palpation (GI): No hepatosplenomegaly present Skin General skin exam: no rashes or lesions noted Extrem General: Yes no clubbing, cyanosis or edema Coding Level of Care Code Est Pt Level 3 (37469) Diagnoses Hyperlipidemia E78.5 Assessment & Plan Assessment & Plan (1) Hyperlipidemia: Code(s): E78.5 - Hyperlipidemia, unspecified Category: Medical Plan: stable; same rx Orders: Orders Lipid Panel Today Z13.220 - Encounter for screening for lipoid disorders
== END 2024-04-01 09:09 | disposition home or self-care (01) ==
PROVIDERS: PCP Internal Medicine; Visit Provider Internal Medicine
DX: Z23 Encounter for immunization (principal); E78.5 Hyperlipidemia, unspecified

== ENCOUNTER → 2024-04-01 08:44 | Outpatient (BNVA) | payer BC, MEDICAID, SELFPAY | PROVIDERS: PCP Internal Medicine; Visit Provider Internal Medicine | DX: E78.5 Hyperlipidemia, unspecified (principal); Z23 Encounter for immunization | CPT/HCPCS: 90471; 90656; 96127 ==

== ENCOUNTER 2024-05-10 10:23 | Outpatient (REF) | payer BC, MEDICAID, SELFPAY ==
--- NOTE | ~2024-05-10 | XR_ITS ---
CLINICAL HISTORY: M25.569 - Pain in unspecified knee [place] view of the right knee. COMPARISON: XR AP bilateral knees dated 05/10/24 at 13:58 EST FINDINGS: Limited sunrise view of the right knee. Patella appears intact. Distal femur appears intact. Surgical clips present along the medial aspect of the knee. IMPRESSION: 1. Limited sunrise view of the right knee. Within limits of study, no evidence of acute injury to the right knee. This document has been electronically signed by: Antonio Gold MD on 05/13/2024 21:14:09
--- NOTE | ~2024-05-10 | XR_ITS ---
CLINICAL HISTORY: M25.569 - Pain in unspecified knee AP view of the bilateral knees COMPARISON: None FINDINGS: Right knee: Joint spaces are maintained. Surgical clips present along the medial aspect of the knee. Visualized portions of the distal femur and proximal tibia and fibula and the patella appear intact. Left knee: Joint spaces are maintained. Visualized portions of the distal femur and proximal tibia and fibula and the patella appear intact. IMPRESSION: 1. Limited AP imaging of the bilateral knees. Within limits of study no evidence of acute injury to the bilateral knees. This document has been electronically signed by: Antonio Gold MD on 05/13/2024 21:13:59
--- OUTSIDE RECORDS SUMMARY | 2024-05-13 10:30 | XMS_ITS | Patient Health Record ---
Author Organization [facility] Address [address] [place] [address] Care Team Providers Care Instrument Repair Supervisor Name Role Phone Ismael Dimas MD Primary Care Provider Unavaila ble Chidi Rosenberg Unavailable [phone] ALLERGIES No Known Allergies REASON FOR REFERRAL Referring Provider First Name Ismael Referring Provider Last Name Judie Referring Provider Speciality General Pr actice Referred Organization [facility] Referred Provider Chidi Rosenberg Referred Address [address] [facility] [address],[place], [place],[address], Referred Provider Specialty Gastroentero logy General Notes Chelly Akins 024 11:05:43 AM EDT > [place] [facility] [place] FOR PROCEDURE WITH DR ROSENBERG ON Monday01-01-2024. SPOKE WITH [facility] Referral Priority Routine MEDICATIONS Medication SIG (Take, Route, Frequency, Duration) Notes Start Date End Date Status Atorvastatin Calcium 80 MG Oral for 90 Active Aspirin Low Dose 81 MG TAKE 1 TABLET BY MOUTH ONCE DAILY Oral for 90 Active SOCIAL HISTORY Tobacco Use: Social History Observation Description Date Details (start date - stop date) Never Smoker NA - NA Sex Assigned At : Social History Observation Description Sex Assigned At Unknown Tobacco Use/Smoking Question Answer Notes Patient is a nonsmoker Alcohol Screen Question Answer Notes Did you have a drink containing alcohol in the p ast year? No Points 0 Interpretation Negative PROBLEMS Problem Type ICD Code Onset Dates Problem Status W/U Status Risk SNOMED Code Notes Problem Colon cancer screening (Z12.11) Active confirmed Colon can cer screening (504900484) Problem Encounter for other preprocedural examination (Z01.818) Active confirmed Pre-procedure evaluation check (386399666) Problem Diverticulosis of large intestine without perforation or abscess without bleeding (K57.30) Active confirmed Diverticul ar disease of colon (239906788) VITAL SIGNS Blood pressure diastolic 00 mm Hg 09/26/2023 Height 5 ft 4 in in 09/26/2023 Blood pressure systolic 00 mm Hg 09/26/2023 Weight 151 lbs 09/26/2023 BMI 25.92 kg/m2 09/26/2023 Encounters Encounter Location Date Provider Diagnosis [facility] [place] [address] [place], [place] [id number] 01/01/2024 Chidi Rosenberg Colon cancer screeni ng Z12.11 ; Diverticulosis of large intestine without perforation or abscess without bleeding K57.30 and Other hemorrhoids K64.8 [facility] [address] [place] [address] 09/26/2023 Chidi Rosenberg Colon cancer screeni ng Z12.11 and Encounter for other preprocedural examination Z01.818 ASSESSMENTS Encounter Date Diagnosis Assessment Notes Treatment Notes Treatment Clinical Notes 01/01/2024 Colon cancer screening (ICD-10 - Z12.11) 01/01/2024 Diverticulosis of large intestine without perforation or abscess without bleeding (ICD-10 - K57.30) 09/26/2023 Colon cancer screening (ICD-10 - Z12.11) Do not take aspirin on the morning of the colonoscopy 09/26/2023 Encounter for other preprocedural examination (ICD-10 - Z01.818) 01/01/2024 Other hemorrhoids (ICD-10 - K64.8) PLAN OF TREATMENT Future Test Test Name Order Date COLONOSCOPY 09/26/2023 Insurance Providers Payer Name Payer Address Payer Phone Subscriber Number Group Number Insured Name Patient Relationship to Insured Coverage Start Date Coverage End Date [facility] [employer] BC[employer] PROFESSIONAL CLAIMS [address] [place] [address] [id number] EFRAIN SIMMONS Self - patient is the insured MEDICAL (GENERAL) HISTORY Medical History History ICD Code [place] in 2012 Denies DM,CVA,Lung disease,renal disease Hyperlipidemia Negative screening colonoscopy in his ea rly 50s [address] Collier Surgical History Surgery Date(Month/Year) 3 V CABG 2012
--- OUTSIDE RECORDS SUMMARY | 2024-05-13 10:30 | XMS_ITS ---
Author Organization [facility] Address [address] [place] [address] Care Team Providers Care Manganese Wheeler Name Role Phone Ismael Dimas MD Primary Care Provider Chidi Woods [phone] ALLERGIES No Known Allergies REASON FOR VISIT Patient presents today for a colon screening MEDICATIONS Medication SIG (Take, Route, Frequency, Duration) [...] Colon cancer screening (Z12.11) Active confirmed Colon cancer screening (076376442) Problem Encounter for other preprocedural examination (Z01.818) Active confirmed Pre-procedure evaluation check (100628766) VITAL SIGNS BMI 25.92 kg/m2 09/26/2023 Blood pressure systolic 00 mm Hg 09/26/19 24 Blood pressure diastolic 00 mm Hg 024 Height 5 ft 4 in in 09/26/2023 Weight 151 lbs 09/26/2023 Encounters Encounter Location Date Provider Diagnosis [facility] [address] [place] [address] 09/26/2023 Chidi Godinez Colon cancer screeni ng Z12.11 and Encounter for other preprocedural examination Z01.818 ASSESSMENTS Encounter Date Diagnosis Assessment Notes Treatment Notes Treatment Clinical Notes 09/26/2023 Colon cancer screening (ICD-10 - Z12.11) Do not take aspirin on the morning of the colonoscopy 09/26/2023 Encounter for other preprocedural examination (ICD-10 - Z01.818) PLAN OF TREATMENT Treatment Notes Assessment Notes Colon cancer screening Do not take aspir in on the morning of the colonoscopy Future Test Test Name Order Date COLONOSCOPY 09/26/2023 Next Appt Details Follow Up: prn, Reason: Progress Notes * Examination Category Sub-Category Detail Notes General Examination GENERAL APPEARANCE: pleasant , well nourished, well developed, in no acute distress HEAD: EYES: sclera non-icteric EARS: NOSE: THROAT: NECK/THYROID: no cervical lymphade nopathy, neck supple HEART: S1, S2 normal CHEST: LUNGS: clear to auscultatio n bilaterally ABDOMEN: normal bowel sounds, no guarding or rigidity, no guarding or rigidity, no masses palpable, soft, nontender, nondistended NEUROLOGIC: alert and oriented SKIN: nonjaundiced, no spi hyacinth angiomata EXTREMITIES: no edema PERIPHERAL PULSES: BACK: BREASTS: MUSCULOSKELETAL: MALE GENITOURINARY: LYMPH NODES: RECTAL EXAM: FEMALE GENITOURINARY: ORAL CAVITY: mucosa moist
--- OUTSIDE RECORDS SUMMARY | 2024-05-13 10:30 | XMS_ITS ---
Author Organization [facility] Address [address] [place] [address] Care Team Providers Care Sheriff'S Officer Name Role Phone Ismael Dimas MD Primary Care Provider Unavaila Cihdi Wood Unavailable [phone] REASON FOR VISIT screening PROBLEMS Problem Type ICD Code Onset Dates Problem Status W/U Status Risk SNOMED Code Notes Problem Diverticulosis of large intestine without perforation or abscess without bleeding (K57.30) Active confirmed Diverticul ar disease of colon (356086283) Encounters Encounter Location Date Provider Diagnosis [facility] Outpatient [address] [place], [place] [id number] 01/01/2024 Chidi Godinez Colon cancer scree simin Z12.11 ; Diverticulosis of large intestine without perforation or abscess without bleeding K57.30 and Other hemorrhoids K64.8 ASSESSMENTS Encounter Date Diagnosis Assessment Notes Treatment Notes Treatment Clinical Notes 01/01/2024 Colon cancer screening (ICD-10 - Z12.11) 01/01/2024 Diverticulosis of large intestine without perforation or abscess without bleeding (ICD-10 - K57.30) 01/01/2024 Other hemorrhoids (ICD-10 - K64.8) PLAN OF TREATMENT No Information
== END 2024-05-10 10:24 | disposition home or self-care (01) ==
LOC: HO.HOSX 10:23
PROVIDERS: Visit Provider Physician Assistant
DX: M25.561 Pain in right knee (principal); M25.562 Pain in left knee
CPT/HCPCS: 73560

== ENCOUNTER 2024-05-10 13:55 | Outpatient (AMB) | payer BC, MEDICAID, SELFPAY ==
--- NOTE | 2024-05-10 13:58 | A.OFFVIS_ITS ---
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 Patient reports ongoing pain for 6 months. He mentions that his pain starts at the knee and radiates down to his dutton. Pain is worse when he is laying down. Patient has tried and failed NSAIDs and warm compresses. 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 The patient presented to the ED on 03/23/24 for right knee pain with the onset of 2 weeks ago. The patient does not recall any injury, fall or trauma to the right knee. X-rays of the right knee were obtained in the ER. He was recommended to apply a heating pad to the painful area and to take OTC ibuprofen 200 mg PO Q6H. While in the office today, the patient reports experiencing right knee pain, ongoing for the past 6 months. He mentions pain starts in his right knee and radiates down to his dutton. Pain aggravates when he lies down. He has tried and failed NSAIDs and warm compresses. [facility] Medical History Myocardial infarction Other and unspecified hyperlipidemia Orthostatic hypotension Atherosclerotic cardiovascular disease Hyperlipidemia Surgical History H/O colonoscopy History of cardiac catheterization (~11/30/12) H/O heart bypass surgery (~02/26/13) History of tonsillectomy Family History Father Pulmonary embolism Mother Hypertension Heart disease Family/Other Diabetes CAD (coronary artery disease) Social History Housing: House Alcohol intake: current Alcohol intake frequency: does not drink Alcohol type: wine Patient Tobacco Use Status: Never used Tobacco e-Cigarette/Vaping Use: Never Used Second Hand Smoke Exposure: No service: No Current occupational status: disabled Cognitive needs: No Hearing needs: No Vision needs: Yes Review of Systems Const All systems reviewed & are unremarkable except as noted in HPI and below Physical Exam Const General: cooperative and no acute distress Orientation/consciousness: patient oriented x3 Resp Effort & Inspection: normal respiratory effort and able to speak in complete s entences Cardio Peripheral pulses: Peripheral pulses 2+ throughout Skin General skin exam: no rashes or lesions noted Neuro General: patient oriented x3 Extrem Other: Right knee: Normal to inspection. No ecchymosis, erythema, or joint effusion. No tenderness to palpation along the medial or lateral joint lines. Full knee extension and flexion. Able to demonstrate full dorsiflexion, plantar flexion, pronation and supination. Able to perform straight leg raise without any difficulties or reproductive pain. Negative Bryan?s. Negative anterior drawer. NVI. Sensation intact. Pedal pulse is intact. Of note, he does have a bunion of the right foot. Assessment & Plan Assessment & Plan (1) Internal derangement of right knee: Code(s): M23.91 - Unspecified internal derangement of right knee Category: Medical Plan Mr. Mcfarland is a 63-year-old male who presents in the office today, as a new patient, for an evaluation of right knee pain. The patient presented to the ED on 03/23/24 for right knee pain with the onset of 2 weeks ago. The patient does not recall any injury, fall or trauma to the right knee. X-rays of the right knee were obtained in the ER. He was recommended to apply a heating pad to the painful area and to take OTC ibuprofen 200 mg PO Q6H. While in the office today, the patient reports experiencing right knee pain, ongoing for the past 6 months. He mentions pain starts in his right knee and radiates down to his dutton. Pain aggravates when he lies down. He has tried and failed NSAIDs and warm compresses. He does report that he does experience occasional anterior dutton pain that radiates from the knee down to the anterior aspect of the dutton to the ankle. I have placed a referral to physical therapy for the right knee and recommended to complete six weeks of physical therapy sessions. Should he continue to have pain after the physical therapy then the next step would be a referral to Pain Management for further evaluation and treatment. I have sent a prescription of Celebrex 200 mg PO BID to the pharmacy for pain relief. Follow-up will be in 6 weeks, or sooner if needed. X-rays of the right knee, which were obtained while in the office today and were reviewed by me, Lynne Roland PA-C, revealed: Negative for acute fracture or dislocation. Orders: Orders XR knee LT 1V Today M25.569 - Pain in unspecified knee PT Evaluation and Treatment Today M23.91 - Unspecified internal derangement of right knee XR knee RT 2V Today M25.569 - Pain in unspecified knee Medications: New celecoxib (Celebrex) 200 mg PO BID 30 days 60 caps 0RF Patient Instructions: Scribed by Elaine Spencer, medical liaison, for Lynne Roland PA-C on 05/10/24 at 02:42 pm EST. Coding Level of Care Code New Pt Level 3 (45872) Diagnoses Internal derangement of right knee M23.91
== END 2024-05-10 14:29 | disposition home or self-care (01) ==
PROVIDERS: PCP Internal Medicine; Visit Provider Physician Assistant
DX: M23.91 Unspecified internal derangement of right knee (principal)
CPT/HCPCS: 99203

== ENCOUNTER → 2024-05-10 13:58 | Outpatient (BNV) | payer BC, MEDICAID, SELFPAY | PROVIDERS: Visit Provider Radiology Diagnostic Radiology | DX: M25.562 Pain in left knee (principal); M25.561 Pain in right knee | CPT/HCPCS: 73560 ==

== ENCOUNTER 2024-07-04 06:18 | Outpatient (REF) | payer BC, MEDICAID, SELFPAY ==
--- OUTSIDE RECORDS SUMMARY | 2024-07-04 06:21 | XMS_ITS | Patient Health Record ---
Author Organization [facility] Address [address] [place] [address] Care Team Providers Care Linux Consultant Name Role Phone Ismael Dimas MD Primary Care Provider Unavaila ble Chidi Rosenberg Unavailable [phone] ALLERGIES No Known Allergies REASON FOR REFERRAL Referring Provider First Name Ismael Referring Provider Last Name Judie Referring Provider Speciality General Pr actice Referred Organization [facility] Referred Provider Chdii Rosenberg Referred Address [address] [facility],[address],[place], [place],[address], Referred Provider Specialty Gastroentero logy General Notes Chelly Akins 024 11:05:43 AM EDT > REQUESTED AN [facility] BLUE REFERRAL FOR PROCEDURE WITH DR ROSENBERG ON Monday01-01-2024. SPOKE WITH [facility] Referral Priority Routine MEDICATIONS Medication SIG (Take, [...] (Z12.11) Active confirmed Colon can cer screening (053208875) Problem Encounter for other preprocedural examination (Z01.818) Active confirmed Pre-procedure evaluation check (019608735) Problem Diverticulosis of large intestine without perforation or abscess without bleeding (K57.30) Active confirmed Diverticul ar disease of colon (750024075) VITAL SIGNS Blood pressure diastolic 00 mm Hg 09/26/2023 Height 5 ft 4 in in 09/26/2023 Blood pressure systolic 00 mm Hg 09/26/2023 Weight 151 lbs 09/26/2023 BMI 25.92 kg/m2 09/26/2023 Encounters Encounter Location Date Provider Diagnosis [facility] [place] Out[place] [address] [place], [place] [id number] 01/01/2024 Chidi Rosenberg Colon cancer screeni ng Z12.11 ; Diverticulosis of large intestine without perforation or abscess without bleeding K57.30 and Other hemorrhoids K64.8 [facility] [address] [place] [address] 09/26/2023 Chidi Rosenberg Colon cancer screeni ng [...] Insured Coverage Start Date Coverage End Date [facility] [employer] PROFESSIONAL CLAIMS [address] [place] [address] [phone] [id number] EF[address]IN SIMMONS Self - patient is the insured MEDICAL (GENERAL) HISTORY Medical History History ICD Code [place] in 2012 Denies DM,CVA,Lung disease,renal disease Hyperlipidemia Negative screening colonoscopy in his ea rly 50s [address] Collier Surgical History Surgery Date(Month/Year) 3 V CABG 2012
--- OUTSIDE RECORDS SUMMARY | 2024-07-04 06:21 | XMS_ITS ---
Author Organization [facility] Address [address] [place] [address] Care Team Providers Care Master Fisher Name Role Phone Ismael Dimas MD Primary Care Provider Unavaila Chidi Wood Unavailable [phone] REASON FOR VISIT screening PROBLEMS Problem Type ICD Code Onset Dates Problem Status W/U Status Risk SNOMED Code Notes Problem Diverticulosis of large intestine without perforation or abscess without bleeding (K57.30) Active confirmed Diverticul ar disease of colon (190359432) Encounters Encounter Location Date Provider Diagnosis [facility] [place] Outpatient [address] [place], [place] [phone] 01/01/2024 Chidi Godinez Colon cancer scree simin [...]
--- OUTSIDE RECORDS SUMMARY | 2024-07-04 06:21 | XMS_ITS ---
Author Organization [facility] Address [address] [place] [address] Care Team Providers Care Coin Machine Operator Name Role Phone Ismael Dimas MD Primary Care Provider Chidi Woods [phone] ALLERGIES No Known Allergies REASON FOR VISIT [...] screening (Z12.11) Active confirmed Colon cancer screening (125715402) Problem Encounter for other preprocedural examination (Z01.818) Active confirmed Pre-procedure evaluation check (175582309) VITAL SIGNS BMI 25.92 kg/m2 09/26/2023 Blood pressure systolic 00 mm Hg 09/26/19 24 Blood pressure diastolic 00 mm Hg 024 Height 5 ft 4 in in 09/26/2023 Weight 151 lbs 09/26/2023 Encounters Encounter Location Date Provider Diagnosis [facility] [address] [place] [address] 09/26/2023 Chidi Godinez Colon cancer screeni ng [...]
[2024-07-04 07:37] LABS: Cholesterol 118 mg/dL (<200); HDL Cholesterol 39 mg/dL (>40); LDL Cholesterol Calculated 70 mg/dL (<100); Triglycerides 46 mg/dL (<150)
== END 2024-07-04 06:19 | disposition home or self-care (01) ==
LOC: HO.LAB 06:18
PROVIDERS: PCP Internal Medicine; Visit Provider Internal Medicine
DX: Z13.6 Encounter for screening for cardiovascular disorders (principal); Z13.220 Encounter for screening for lipoid disorders
CPT/HCPCS: 36415; 80061

== ENCOUNTER 2024-07-05 08:15 | Outpatient (AMB) | payer BC, MEDICAID, SELFPAY ==
--- OUTSIDE RECORDS SUMMARY | 2024-07-05 08:19 | XMS_ITS | Patient Health Record ---
Author Organization [facility] Address [address] [place] [address] Care Team Providers Care Injection Specialist Name Role Phone Ismael Dimas MD Primary Care Provider Unavaila ble Chidi Rosenberg Unavailable [phone] ALLERGIES No Known Allergies REASON FOR REFERRAL Referring Provider First Name Ismael Referring Provider Last Name Judie Referring Provider Speciality General Pr actice Referred Organization [facility] Referred Provider Chidi Rosenberg Referred Address [address] [facility],[place], [place],[address], Referred Provider Specialty Gastroentero logy General Notes Chelly Akins 024 11:05:43 AM EDT > REQUESTED AN [facility] BLUE REFERRAL FOR PROCEDURE WITH DR ROSENBERG ON Monday01-01-2024. SPOKE WITH [facility] Referral Priority Routine MEDICATIONS Medication SIG (Take, [...] (Z12.11) Active confirmed Colon can cer screening (919842398) Problem Encounter for other preprocedural examination (Z01.818) Active confirmed Pre-procedure evaluation check (680448296) Problem Diverticulosis of large intestine without perforation or abscess without bleeding (K57.30) Active confirmed Diverticul ar disease of colon (238576968) VITAL SIGNS Blood pressure diastolic 00 mm Hg 09/26/2023 Height 5 ft 4 in in 09/26/2023 Blood pressure systolic 00 mm Hg 09/26/2023 Weight 151 lbs 09/26/2023 BMI 25.92 kg/m2 09/26/2023 Encounters Encounter Location Date Provider Diagnosis [facility] [place] Outpatient [address] [place], [place] [id number] 01/01/2024 Chidi Rosenberg Colon cancer screeni ng Z12.11 ; Diverticulosis of large intestine without perforation or abscess without bleeding K57.30 and Other hemorrhoids K64.8 [facility] [address] [place] [address] 09/26/2023 Chidi Rosenberg Colon cancer screeni ng [...] Insured Coverage Start Date Coverage End Date [facility] [address] [employer] PROF[employer]AL CLAIMS [address] [place] [address] [phone] [id number] EFRAIN SIMMONS Self - patient is the insured MEDICAL (GENERAL) HISTORY Medical History History ICD Code [place] in 2012 Denies DM,CVA,Lung disease,renal disease Hyperlipidemia Negative screening colonoscopy in his ea rly 50s [address] Collier Surgical History Surgery Date(Month/Year) 3 V CABG 2012
[2024-07-05 08:20] VITALS: BP 114/68; PULSE 71; O2SAT 91; BMI 26.1
--- NOTE | 2024-07-05 08:20 | MHC.PC.OV ---
Vital Signs 07/05/24 08:20 Height 5 ft 4 in Weight 152 lb BMI 26.1 BP 114/68 Blood Pressure Location Lt brachial Position Sitting Pulse 71 Pulse Source Pulse Oximeter Pulse Oximetry (%) 91 L Oxygen Delivery Method Room Air Intake Visit Reasons: 3 month f/u Allergies No Known Allergies Allergy (Verified 07/05/24 08:21) Medication List - Last Reconciled 07/05/24 by Ismael Dimas MD aspirin 81 mg PO DAILY atorvastatin 80 mg PO DAILY celecoxib 200 mg PO BID nitroglycerin 0.4 mg sublingual Q5M PRN Tobacco use date assessed: 07/05/24 Fall risk assessment: No Falls in past year Last assessed Fall Risk: 07/05/24 Dental Screening Dental Screen Date: 07/05/24 Did you have a dental visit in the last 12 months?: Yes Did you have a dental problem in the last 6 months where you did not have access to dental care?: No Was dental information given to patient?: Patient has dentist HPI 3 month f/u HPI Details CAD s/pCABG; doing well; no recurrent chest pain PFSH Medical History Myocardial infarction Other and unspecified hyperlipidemia Orthostatic hypotension Atherosclerotic cardiovascular disease Hyperlipidemia Surgical History H/O colonoscopy History of cardiac catheterization (~11/30/12) H/O heart bypass surgery (~02/26/13) History of tonsillectomy Family History Father Pulmonary embolism Mother Hypertension Heart disease Family/Other Diabetes CAD (coronary artery disease) Social History Housing: House Alcohol intake: current Alcohol intake frequency: does not drink Alcohol type: wine Patient Tobacco Use Status: Never used Tobacco Tobacco use type: Cigarette e-Cigarette/Vaping Use: Never Used Second Hand Smoke Exposure: No service: No Current occupational status: disabled Cognitive needs: No Hearing needs: No Vision needs: Yes Questionnaire PHQ-9 Over the last 2 weeks, how often have you been bothered by any of the following problems? 1. Little interest or pleasure in doing things: not at all 2. Feeling down, depressed, or hopeless: not at all 3. Trouble falling or staying asleep, or sleeping too much: not at all 4. Feeling tired or having little energy: not at all 5. Poor appetite or overeating: not at all 6. Feeling bad about yourself - or that you are a failure or have let yourself or your family down: not at all 7. Trouble concentrating on things, such as reading the newspaper or watching television: not at all 8. Moving or speaking so slowly that other people could have noticed. Or the opposite - being so fidgety or restless that you have been moving around a lot more than usual: not at all 9. Thoughts that you would be better off or of hurting yourself in some way: not at all Total score: 0 Depression Screening Interpretation: Negative Depression Screening Done: Yes Source: Developed by Drs. Chidi Carrillo, Annette Paulino, Abhilash Monteiro and colleagues, with an educational iris from [employer]. Thrive Questionnaire Date Thrive assessed: 07/05/24 I am a: Patient What is your living situation today?: I have a steady place to live Within the past 12 months, did the food you bought not last and you didn't have the money to get more?: Never true Within the past 12 months, did you worry whether your food would run out before you got money to buy more?: Never true Do you have trouble paying for medicines?: No Do you have trouble getting transportation to medical appointments?: No Do you have trouble paying your heating and electricity bill?: No Do you have trouble taking care of your child, family member or friend?: No Do you have trouble with day-to-day activities such as bathing, preparing meals, shopping, managing finances, etc.?: No Are you currently unemployed and looking for a job?: No Are you interested in more education?: No Please select the resources that you would like help with: None Currently or been in a relationship where the following occur: No concerns reported THRIVE Score: 0 AUDIT C Alcohol Use Questionnaire (AUDIT-C) 1. How often do you have a drink containing alcohol?: Never Total Score: 0 Score Reviewed/Action Taken: Yes CARISSA-7 AMB Questionnaire CARISSA-7 Date CARISSA - 7 assessed: 07/05/24 Feeling nervous, anxious, or on edge: 0 = Not at all Not being able to stop or control worryin = Not at all Worrying too much about different things: 0 = Not at all Trouble relaxin = Not at all Being so restless that it is hard to sit still: 0 = Not at all Becoming easily annoyed or irritable: 0 = Not at all Feeling afraid as if something awful might happen: 0 = Not at all Total CARISSA-7 score (0-4 normal; 5-9 mild; 10-14 moderate; 15-21 severe): 0 Source: Developed by Drs. Chidi Carrillo, Annette Paulino, Abhilash Monteiro and colleagues, with an educational iris from [employer]. Review of Systems Const Denies chills, Denies headache(s) and Denies weight loss ENT Denies headache(s) Card Denies chest pain, Denies syncope, Denies irregular heart rhythm and Denies dyspnea Resp Denies chest congestion, Denies cough and Denies dyspnea GI Denies abdominal pain, Denies change in stool character, Denies nausea and Denies vomiting Musc Denies deformity and Denies joint swelling Neuro Denies syncope and Denies headache(s) Physical exam (Primary Care) Vital Signs: Last Vital Signs Pulse 71 07/05/24 08:20 BP 114/68 07/05/24 08:20 Pulse Ox 91 L 07/05/24 08:20 Oxygen Delivery Method Room Air 07/05/24 08:20 BMI result Body Mass Index 26.1 Tobacco/Smoking Status: Tobacco use Status Tobacco use date assessed 07/05/24 07/05/24 08:25 Patient Tobacco Use Status Never used Tobacco 07/05/24 08:25 Tobacco use type Cigarette 07/05/24 08:25 e-Cigarette/Vaping Use Never Used 07/05/24 08:25 PHQ-9: PHQ-9 Score PHQ-9: Total score 0 07/05/24 08:25 Depression Screening Interpretation: Negative Thrive Assessment: Date of Thrive Assessment Date Thrive assessed 07/05/24 07/05/24 08:25 Currently or been in a relationship where the following occur: No concerns reported Const General: cooperative, comfortable, no acute distress and alert Neck Neck: Yes no lymphadenopathy Thyroid: Thyroid normal Resp Effort & Inspection: normal respiratory effort Auscultation: clear to auscultation bilaterally Percussion: percussion normal Cardio Jugular venous distension: no JVD Palpation: normal PMI Rate: regular rate Rhythm: regular rhythm Heart sounds: S1 normal heart sound present and S2 normal heart sound present GI Inspection: Yes normal to inspection Palpation (GI): No hepatosplenomegaly present Skin General skin exam: no rashes or lesions noted Extrem General: Yes no clubbing, cyanosis or edema Coding Level of Care Code Est Pt Level 3 (39379) Diagnoses Status post coronary artery bypass graft Z95.1 Assessment & Plan Assessment & Plan (1) Status post coronary artery bypass graft: Code(s): Z95.1 - Presence of aortocoronary bypass graft Category: Surgical Plan: stable; same rx
--- OUTSIDE RECORDS SUMMARY | 2024-07-05 08:20 | XMS_ITS ---
Author Organization [facility] Address [address] [place] [address] Care Team Providers Care Education Professor Name Role Phone Ismael Dimas MD Primary Care Provider Chidi Woods [phone] ALLERGIES No Known Allergies REASON FOR VISIT [...] screening (Z12.11) Active confirmed Colon cancer screening (908201112) Problem Encounter for other preprocedural examination (Z01.818) Active confirmed Pre-procedure evaluation check (037399365) VITAL SIGNS BMI 25.92 kg/m2 09/26/2023 Blood pressure systolic 00 mm Hg 09/26/19 24 Blood pressure diastolic 00 mm Hg 024 Height 5 ft 4 in in 09/26/2023 Weight 151 lbs 09/26/2023 Encounters Encounter Location Date Provider Diagnosis [facility] [address] [place] [address] 09/26/2023 Chidi Godinez Colon cancer screeni ng [...]
--- OUTSIDE RECORDS SUMMARY | 2024-07-05 08:20 | XMS_ITS ---
Author Organization [facility] Address [address] [place] [address] Care Team Providers Care Press Operator Carbon Blocks Name Role Phone Ismael Dimas MD Primary Care Provider Unavaila Chidi Wood Unavailable [phone] REASON FOR VISIT screening PROBLEMS Problem Type ICD Code Onset Dates Problem Status W/U Status Risk SNOMED Code Notes Problem Diverticulosis of large intestine without perforation or abscess without bleeding (K57.30) Active confirmed Diverticul ar disease of colon (651400897) Encounters Encounter Location Date Provider Diagnosis [facility] Outpatient [address] [place], [place] [phone] 01/01/2024 Chidi Godinez Colon cancer scree simin [...]
== END 2024-07-05 08:38 | disposition home or self-care (01) ==
PROVIDERS: PCP Internal Medicine; Visit Provider Internal Medicine
DX: Z95.1 Presence of aortocoronary bypass graft (principal)

== ENCOUNTER → 2024-07-05 08:15 | Outpatient (BNVA) | payer BC, MEDICAID, SELFPAY | PROVIDERS: PCP Internal Medicine; Visit Provider Internal Medicine ==

== ENCOUNTER 2024-07-15 08:51 | Outpatient (RCR) | payer BC, MEDICAID, SELFPAY ==
--- NOTE | 2024-05-29 13:13 | MHC.PT.EP ---
[facility] [place] [facility] [place] [facility] [place] [facility] [address] [phone] F: [phone] F: [phone] F: [phone] F: [phone] Physical Therapy Plan of Care Date of Evaluation: 05/29/24 Date of Surgery: Diagnosis: RIGHT knee internal derangement (MD Dx) PT Testing reveals; muscle imbalances hip hip/knee/ankle due to antalgic gait from bunion and possible plantar fasciitis (RS) Assessment: Galo is a pleasant, motivated 63 y.o. male who is referred to PT by Lynne Roland PA-C with Dx of RIGHT knee internal derangement. Pt knee pain appears to originate from muscle imbalances hip hip/knee/ankle due to antalgic gait from bunion and possible plantar fasciitis as knee structure and testing are negative. Patient impairments include weakness in glute med and max, reduced endurance of quad musculature, tenderness at plantar fascia and ITB with poor gait mechanics. Patient current functional limitations are worse lying down at night rolling over in bed, driving (painful straight) to push gas pedal, ascend/descend stairs. Patient will benefit from skilled PT to address aforementioned impairments and functional limitations to meet established goals. Frequency and Duration: The patient will be seen 1x/week for 4 weeks Short Term Goals: 2 weeks Patient demonstrates consistency and independence with HEP to self manage symptoms. Usp Goals: 4 weeks Pt presents with increased R ankle DF 5 degrees to restore ankle mobility to normalize gait pattern. Pt presents with increased glute med strength 4+/5 to be able to lie and bed and roll over without sxs. Treatment Plan: Modalities to reduce pain, spasms and effusion. Manual therapy to restore motion and function. Therapeutic exercise to improve strength and flexibility. Neuromuscular re-education for posture and balance. Therapeutic activities to return to functional activities of daily living. Electronically signed by: Jayden Nguyen, PT, DPT Please sign and return to therapist. Thank you for your referral.
--- NOTE | 2024-07-15 12:28 | MHC.PT.DC ---
[facility] [place] [facility] [place] [facility] [place] [facility] [address] Ji Gómez [address] [phone] F: [phone] F: [phone] F: [phone] F: [phone] Physical Therapy Discharge Report Diagnosis: RIGHT knee internal derangement ( Dx) PT Testing reveals; muscle imbalances hip hip/knee/ankle due to antalgic gait from bunion and possible plantar fasciitis (RS) Date of Surgery: Date of Evaluation: 05/29/24 Date of Discharge: 07/15/24 Treatments to Date: 7 Cancellations to Date: No Shows to Date: Discharge Status: Achieved Goals Improved Function Independent with HEP Discharge Summary: Galo completed course of PT. He reports his legs overall feel better now compared to when he first started. He feels he can continue HEP independently. Electronically signed by: Jayden Nguyen, ANNIKA, DPT Please sign and return to therapist. Thank you for your referral.
== END 2024-07-15 12:28 | disposition home or self-care (01) ==
LOC: HO.PT 08:51
PROVIDERS: PCP Internal Medicine; Visit Provider Physician Assistant
DX: M23.91 Unspecified internal derangement of right knee (principal)
CPT/HCPCS: 97110; 97112; 97140; 97161; 97530; 97535

== ENCOUNTER 2024-08-26 08:49 | Outpatient (AMB) | payer BC, MEDICAID, SELFPAY ==
[2024-08-26 08:57] VITALS: BP 110/64; PULSE 64; BMI 26.1
--- NOTE | 2024-08-26 08:57 | A.OFFVIS_ITS ---
Vital Signs 08/26/24 08:57 Height 5 ft 4 in Weight 152 lb 1.903 oz BMI 26.1 BP 110/64 Blood Pressure Location Lt brachial Position Sitting Pulse 64 Intake Visit Reasons: r/s 07/08/24 1 yr followup w/ekg Intake Note: 1 year follow-up with ekg feeling good Annual Campaign Manager Required: No Allergies No Known Allergies Allergy (Verified 07/05/24 08:21) Medication List - Last Reconciled 08/26/24 by Carlito Garland MD aspirin 81 mg PO DAILY atorvastatin 80 mg PO DAILY nitroglycerin 0.4 mg sublingual Q5M PRN HPI Comments Details: The patient is a 64-year-old male presenting with an annual follow-up visit. He has a history of syncope, having lost consciousness once approximately four to five years ago, with no recurrence of such episodes since that time. He confirms that his daily activities remain unaffected, and he denies experiencing any new or worsening cardiovascular symptoms such as chest pain, shortness of breath, or dizziness. Current treatment includes aspirin, atorvastatin, and nitroglycerin as required, with stable blood pressure readings. The patient's EKG was evaluated as normal, and he expresses no concerns about his current cardiovascular health, suggesting maintained stability and no new complications arising from his past cardiac history. [facility] Medical History Myocardial infarction Other and unspecified hyperlipidemia Orthostatic hypotension Atherosclerotic cardiovascular disease Hyperlipidemia Surgical History H/O colonoscopy History of cardiac catheterization (~11/30/12) H/O heart bypass surgery (~02/26/13) History of tonsillectomy Family History Father Pulmonary embolism Mother Hypertension Heart disease Family/Other Diabetes CAD (coronary artery disease) Social History Housing: House Alcohol intake: current Alcohol intake frequency: does not drink Alcohol type: wine Patient Tobacco Use Status: Never used Tobacco Tobacco use type: Cigarette e-Cigarette/Vaping Use: Never Used Second Hand Smoke Exposure: No service: No Current occupational status: disabled Cognitive needs: No Hearing needs: No Vision needs: Yes Review of Systems Const Denies chills, Denies fatigue, Denies fever(s), Denies frequent falls, Denies weakness, Denies weight gain and Denies weight loss ENT Denies dizziness Card Denies chest pain, Denies leg edema, Denies lightheadedness, Denies palpitations, Denies dyspnea, Denies dyspnea on exertion, Denies orthopnea and Denies other (loss of consciousness) Resp Denies cough, Denies dyspnea and Denies dyspnea on exertion GI Denies hematochezia and Denies change in stool character Musc Denies abnormal gait, Denies muscle weakness, Denies numbness, Denies radiating pain into limb and Denies tingling Neuro Denies abnormal gait, Denies dizziness, Denies frequent falls, Denies numbness, Denies tingling and Denies weakness Endo Denies fatigue and Denies palpitations Physical Exam Vital Signs: Last Vital Signs Pulse 64 08/26/24 08:57 BP 110/64 08/26/24 08:57 BMI result Body Mass Index 26.1 Const General: comfortable and no acute distress Orientation/consciousness: patient oriented x3 HEENT Other: Unremarkable Head: Yes normal to inspection Neck Neck: Yes normal visual inspection Chest Chest palpation & inspection: normal inspection of the chest Resp Auscultation: clear to auscultation bilaterally Cardio Palpation: normal PMI Heart sounds: S1 normal heart sound present, S2 normal heart sound present, no gallops, no murmurs and no rubs GI Palpation (GI): Soft to palpation Back/Spine/Pelvis Other: unremarkable Skin General skin exam: no rashes or lesions noted Neuro General: patient oriented x3 Extrem General: Yes normal to inspection Psych Mental Status: mental status grossly normal Office Procedures EKG Details: EKG with underlying sinus rhythm at 64/Min; no significant ST-T changes and otherwise unremarkable[place] [id number], Complete Assessment & Plan Assessment & Plan (1) Atherosclerotic cardiovascular disease: Comment: w/CABG 2012-follows with [facility] Code(s): I25.10 - Atherosclerotic heart disease of [place] coronary artery without angina pectoris Category: Medical (2) Status post coronary artery bypass graft: Code(s): Z95.1 - Presence of aortocoronary bypass graft Category: Surgical (3) Orthostatic hypotension: Code(s): I95.1 - Orthostatic hypotension Category: Medical (4) Other and unspecified hyperlipidemia: Code(s): E78.5 - Hyperlipidemia, unspecified Category: Medical Plan Cardiac data- Myocardial perfusion imaging study from 2018 with likely normal perfusion. Echocardiogram from 2020 shows normal LVEF at 60-65% and mild mitral regurgitation. During this follow-up, we reviewed the patient's cardiovascular health, emphasizing his past syncope episode with no recurrences. With a normal EKG and steady symptom-free status, the continuation of his current medication regimen, including aspirin, atorvastatin, and nitroglycerin as needed, is appropriate. Blood pressure management is effective, requiring no changes. We'll continue with annual follow-ups, given his stable condition. No further diagnostic testing is warranted at present. Patient was informed and verbally consented to the use of an ambient scribe for clinic note documentation during this visit. Discussion Notes During our discussion, I reviewed with the patient his medical history, empha sizing the importance of continuing his current medications, including aspirin and atorvastatin. I explained that with no new episodes of syncope or other cardiovascular symptoms and a normal EKG, his condition is stable. We discussed the role of nitroglycerin for occasional use as needed. I emphasized that his blood pressure is currently well-controlled, supporting the continuation of the current management plan. We agreed to maintain routine annual check-ups to ensure ongoing cardiovascular monitoring. No additional diagnostic studies or procedures are required at this time. Patient Instructions: - Continue taking prescribed aspirin, atorvastatin, and nitroglycerin as needed. - Monitor blood pressure regularly. - Report any new or troubling symptoms, such as chest pain, shortness of breath, or dizziness, promptly. - Return for the next annual check-up, unless instructed otherwise based on any new symptoms. Coding Level of Care Code Est Pt Level 4 (92213) Diagnoses Atherosclerotic cardiovascular disease I25.10 Status post coronary artery bypass graft Z95.1 Orthostatic hypotension I95.1 Other and unspecified hyperlipidemia E78.5 CPT Codes EKG - CPT: 78449-[id number], Complete ([id number])
--- OUTSIDE RECORDS SUMMARY | 2024-08-26 09:32 | XMS_ITS ---
Author Organization [facility] Address [address] [place] [address] Care Team Providers Care Job Development Specialist Name Role Phone Ismael Dimas MD Primary Care Provider Chidi Woods [phone] REASON FOR VISIT screening Problems Problem Type SNOMED Code ICD Code Onset Dates Problem Status W/U Status Risk Notes Problem Diverticular disease of colon (087728472) Diverticulosis of large intestine without perforation or abscess without bleeding (K57.30) Active confirmed Encounters Encounter Location Date Provider Diagnosis [facility] [address] [place], [place] [id number] 01/01/2024 Chidi Godinez Colon cancer scree simin [...] Notes * EFRAIN SIMMONSDOB: (64 yo M)Acc No.[id number]:01/01/2024 COLON WITH MAC Patient:?EFRAIN SIMMONS Provider:?Chidi Godinez MD :1960???Age:63 Y???Sex:Male Dario e:01/01/2024 Address:[address] [place] [address] [facility] [id number] Pcp:Ismael Dimas MD Subjective: * Chief Complaints: * ???1. Screening. * Medical History:? Objective: * Vitals:? Assessment: * Assessment: 1.?Colon cancer screening - Z12.11 (Primary)???2.?Diverticulosis of large intestine without perforation or abscess without bleeding - K57.30???3.?Other hemorrhoids - K64.8??? Plan: * Treatment: * Procedure Codes:?31153 DIAGN OSTIC COLONOSCOPY, Modifiers: 33 * * The named appointment provid er may or may not be the originator of this progress note, and it is not deemed complete until electronically signed by the appointment provider. Sign off status: Pending * Provider:?Chidi Godinez MD Date:? 024 Generated for Gino diaz/Aditi/eTransmitting on:?08/26/2024 09:32 AM EDT
--- OUTSIDE RECORDS SUMMARY | 2024-08-26 09:32 | XMS_ITS | Patient Health Record ---
Author Organization [facility] Address [address] [place] [address] Care Team Providers Care Extension Course Coordinator Name Role Phone Ismael Dimas MD Primary Care Provider Unavaila ble Chidi Rosenberg Unavailable [phone] Allergies No Known Allergies Reason For Referral Referring Provider First Name Ismael Referring Provider Last Name Judie Referring Provider Speciality General Pr actice Referred Organization [facility] Referred Provider Chidi Rosenberg Referred Address [address] [facility],[address],[place], [place],[address], Referred Provider Specialty Gastroentero logy General Notes Chelly Akins 024 11:05:43 AM EDT > REQUESTED AN [facility] REFERRAL FOR PROCEDURE WITH DR ROSENBERG ON Monday01-01-2024. SPOKE WITH [facility] Referral Priority Routine Medications Medication SIG (Take, Route, Frequency, Duration) Notes Start Date End Date Status Atorvastatin Calcium 80 MG Oral for 90 Active Aspirin Low Dose 81 MG TAKE 1 TABLET BY MOUTH ONCE DAILY Oral for 90 Active Social History Tobacco Use: Social History Observation Description Date Details (start date - stop date) Never Smoker NA - NA Tobacco Use/Smoking Question Answer Notes Patient is a nonsmoker Alcohol Screen Question Answer Notes Did you have a drink containing alcohol in the p ast year? No Points 0 Interpretation Negative Problems Problem Type SNOMED Code ICD Code Onset Dates Problem Status W/U Status Risk Notes Problem Colon cancer screening (558489901) Colon cancer screening (Z12.11) Active confirmed Problem Pre-procedure evaluation check (121678517) Encounter for other preprocedural examination (Z01.818) Active confirmed Problem Diverticular disease of colon (984689267) Diverticulosis of large intestine without perforation or abscess without bleeding (K57.30) Active confirmed Vital Signs Blood pressure diastolic 00 mm Hg 09/26/2023 Height 5 ft 4 in in 09/26/2023 Blood pressure systolic 00 mm Hg 09/26/2023 Weight 151 lbs 09/26/2023 BMI 25.92 kg/m2 09/26/2023 Encounters Encounter Location Date Provider [place] [facility] [place] [address] [place], [place] [id number] 01/01/2024 Chidi Rosenberg Colon cancer screeni ng Z12.11 ; Diverticulosis of large intestine without perforation or abscess without bleeding K57.30 and Other hemorrhoids K64.8 [facility] [address] [place] [address] 09/26/2023 Chidi Rosenberg Colon cancer screeni ng Z12.11 and Encounter for other preprocedural examination Z01.818 Assessments Encounter Date Diagnosis (ICD Code) Assessment Notes Treatment Notes Treatment Clinical Notes Section Notes 01/01/2024 Colon cancer screening (ICD-10 - Z12.11) 01/01/2024 Diverticulosis of large intestine without perforation or abscess without bleeding (ICD-10 - K57.30) 09/26/2023 Colon cancer screening (ICD-10 - Z12.11) Do not take aspirin on the morning of the colonoscopy Overall, Galo appears quite well. Given his age, excellent clinical appearance, and last colonoscopy being 10 years ago, I did recommend a followup colonoscopy for further screening purposes. We did review the rationale for that regard to colon cancer prevention. Full consent is obtained for this, including risks of bleeding and perforation. The procedure will be done monitored anesthesia care. He was advised not to use aspirin on the morning of the procedure. Galo and his were comfortable with this plan. Thank you again for allowing me to participate in Galo's care. I shall continue to keep you advised of his progress. 09/26/2023 Encounter for other preprocedural examination (ICD-10 - Z01.818) Overall, Galo appears quite well. Given his age, excellent clinical appearance, and last colonoscopy being 10 years ago, I did recommend a followup colonoscopy for further screening purposes. We did review the rationale for that regard to colon cancer prevention. Full consent is obtained for this, including risks of bleeding and perforation. The procedure will be done monitored anesthesia care. He was advised not to use aspirin on the morning of the procedure. Galo and his were comfortable with this plan. Thank you again for allowing me to participate in Galo's care. I shall continue to keep you advised of his progress. 01/01/2024 Other hemorrhoids (ICD-10 - K64.8) Plan Of Treatment Future Test Test Name Order Date COLONOSCOPY 09/26/2023 Insurance Providers Payer Name Payer Address Payer Phone Subscriber Number Group Number Insured Name Patient Relationship to Insured Coverage Start Date Coverage End Date [facility] [employer] [address] [place] [address] [id number] GALO SIMMONS Self - patient is the insured Medical (General) History Medical History History ICD Code HI in 2012 Denies DM,CVA,Lung disease,renal disease Hyperlipidemia Negative screening colonoscopy in his ea rly 50s [address] Collier Surgical History Surgery Date(Month/Year) 3 V CABG 2012
--- OUTSIDE RECORDS SUMMARY | 2024-08-26 09:33 | XMS_ITS ---
Author Organization [facility] Address [address] [place] [id number] Care Team Providers Care Top Cleaner Name Role Phone Ismael Dimas MD Primary Care Provider Chidi Woods [phone] Allergies No Known Allergies REASON FOR VISIT Patient presents today for a colon screening Medications Medication SIG (Take, Route, Frequency, Duration) [...] Status Risk Notes Problem Colon cancer screening (706266632) Colon cancer screening (Z12.11) Active confirmed Problem Pre-procedure evaluation check (004146036) Encounter for other preprocedural examination (Z01.818) Active confirmed Vital Signs Blood pressure systolic 00 mm Hg 09/26/19 24 Blood pressure diastolic 00 mm Hg 024 Height 5 ft 4 in in 09/26/2023 Weight 151 lbs 09/26/2023 BMI 25.92 kg/m2 09/26/2023 Encounters Encounter Location Date Provider Diagnosis [facility] [address] [place] [phone] 09/26/2023 Chidi Godinez Colon cancer screeni ng Z12.11 and Encounter for other preprocedural examination Z01.818 Assessments Encounter Date Diagnosis (ICD Code) Assessment Notes Treatment Notes Treatment Clinical Notes Section Notes 09/26/2023 Colon cancer screening (ICD-10 - [...] to keep you advised of his progress. Plan Of Treatment Treatment Notes Assessment Notes Colon cancer screening Do not take aspir in on the morning of the colonoscopy Future Test Test Name Order Date COLONOSCOPY 09/26/2023 Next Appt Details Follow Up: prn, Reason: Progress Notes * GALO SIMMONSDOB: [birth year] (63 yo M)Acc No.[id number]:09/26/2023 Progress Notes Patient:?GALO SIMMONS Provider:?Chidi Godinez MD :1960???Age:63 Y???Sex:Male Dario e:09/26/2023 Address:[address] [place] [address] Pcp:Ismael Dimas MD Subjective: * Chief Complaints: * ???Patient presents today fo r a colon screening * HPI: ???incontinence:? I saw Galo in the office today for evaluation of colorectal cancer screening. He was accompanied by his . ?As you know, Galo is a 63-year-old male who presently feels very well. He enjoys a good appetite, without any significant heartburn or dysphagia. He denies any abdominal pain, jaundice, nor unintentional weight loss. He denies any change in bowel habits, hematochezia, or melena. He denies any known family history of colon cancer. ?He describes a negative screening colonoscopy about [address] Collier. * ROS:?General/Constitutional:?Change in appetite?denies.?Chills?denies.?Fatigue?denies.?Ophthalmologic:?Comments?all negative.?ENT:?Comments?all negative.?Respiratory:?hemoptysis?denies.?Cough?denies.?Cardiovascular:?Chest pain?denies.?Orthopnea?denies.?Gastrointestinal:?Comments?See HPI for details.?Genitourinary:?Hematuria?denies.?Dysuria?denies.?Musculoskeletal:?Painful joints?denies.?Weakness?denies.?Skin:?Itching?denies.?Rash?denies.?Neurologic:?Headache?denies.?Seizures?denies.?Psychiatric:?Comments?all negative.? * Medical History:? * Surgical History:?3 V CABG 2 013 * Hospitalization/Major Diagno stic Procedure:?No Hospitalization History. * Family History:?Father: dece ased.?Mother: .? no known hx of colon ca,polyps or liver ds. * Social History:?Tobacco Use:?Tobacco Use/Smoking?Patient is a?nonsmoker.?Drugs/Alcohol:?Alcohol Screen?Did you have a drink containing alcohol in the past year??No,?Points?0,?Interpretation?Negative.?Miscellaneous:?Marital status: . 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 * Medications:?TakingAtorvasta tin Calcium 80 MG Tablet Oral Aspirin Low Dose 81 MG Tablet Delayed Release TAKE 1 TABLET BY MOUTH ONCE DAILY Oral Medication List reviewed and reconciled with the patientTaking Atorvastatin Calcium 80 MG Tablet Oral Taking Aspirin Low Dose 81 MG Tablet Delayed Release TAKE 1 TABLET BY MOUTH ONCE DAILY Oral Medication List reviewed and reconciled with the patient * Allergies:?N.K.D.A.yes[Aller gies Verified] Objective: * Vitals:?Wt: 151 lbs, Ht: 5 f t 4 in, BMI:25.92 Index, BP: 00/00 mm Hg. * Examination: ???General Examination: ?GENERAL APPEARANCE:?pleasant, well nourished, well developed, in no acute distress.?EYES:?sclera non-icteric.?ORAL CAVITY:?mucosa moist.?NECK/THYROID:?no cervical lymphadenopathy, neck supple.?SKIN:?nonjaundiced, no spider angiomata.?HEART:?S1, S2 normal.?LUNGS:?clear to auscultation bilaterally.?ABDOMEN:?normal bowel sounds, no guarding or rigidity, no guarding or rigidity, no masses palpable, soft, nontender, nondistended.?EXTREMITIES:?no edema.?NEUROLOGIC:?alert and oriented.? Assessment: * Assessment: 1.?Encounter for other prepr ocedural examination - Z01.818 (Primary)?2.?Colon cancer screening - Z12.11? Overall, Galo appears quit e well. Given his age, excellent clinical appearance, [...] to keep you advised of his progress. Plan: * Treatment: Notes: Do not take aspirin on the morning of the colonoscopy?? * Procedure Codes:?3017F COLOR ECTAL CA SCREEN DOC [id number] TOBACCO NON-CODLS2567 BP SCR NOT PRFRM REC REASON NOS * Follow Up:?prn * * Sign off status: Completed true * Provider:?Chidi Godinez MD Date:? 024 Generated for Gino diaz/Aditi/eTpegsmitting on:?08/26/2024 09:32 AM EDT History and Physical Notes * HPI (History of Present Illness) Category Sub-Category Detail Notes Category Not es incontinence I saw Galo in the office today for evaluation of colorectal cancer screening. He was accompanied by his . As you know, Galo is a 63-year-old male who presently feels very well. He enjoys a good appetite, without any significant heartburn or dysphagia. He denies any abdominal pain, jaundice, nor unintentional weight loss. He denies any change in bowel habits, hematochezia, or melena. He denies any known family history of colon cancer. He describes a negative screening colonoscopy about [address] Collier. Examination Category Sub-Category Detail Notes Category Not es General Examination GENERAL APPEARANCE: pleasant , well [...]
== END 2024-08-26 09:31 | disposition home or self-care (01) ==
LOC: HO.HCS 08:49
PROVIDERS: PCP Internal Medicine; Visit Provider Internal Medicine
DX: I25.10 Atherosclerotic heart disease of native coronary artery without angina pectoris (principal); Z95.1 Presence of aortocoronary bypass graft; I95.1 Orthostatic hypotension; E78.5 Hyperlipidemia, unspecified
CPT/HCPCS: 93010; 99214

== ENCOUNTER → 2024-08-26 08:49 | Outpatient (BNVA) | payer BC, MEDICAID, SELFPAY | PROVIDERS: PCP Internal Medicine; Visit Provider Internal Medicine | DX: I25.10 Atherosclerotic heart disease of native coronary artery without angina pectoris (principal); I95.1 Orthostatic hypotension; E78.5 Hyperlipidemia, unspecified; Z95.1 Presence of aortocoronary bypass graft | CPT/HCPCS: 93005 ==

== ENCOUNTER 2024-10-10 06:01 | Outpatient (REF) | payer BC, MEDICAID, SELFPAY | END 2024-10-10 06:02 | disposition home or self-care (01) | LOC: HO.LAB 06:01 | PROVIDERS: PCP Internal Medicine; Visit Provider Internal Medicine | DX: Z13.89 Encounter for screening for other disorder (principal) ==

== ENCOUNTER 2024-10-11 14:56 | Outpatient (AMB) | payer BC, MEDICAID, SELFPAY ==
--- OUTSIDE RECORDS SUMMARY | 2024-10-11 14:58 | XMS_ITS | Patient Health Record ---
Author Organization [facility] Address [address] [place] [address] Care Team Providers Care Family And Consumer Science Professor Name Role Phone Ismael Dimas MD Primary Care Provider Unavaila ble Chidi Rosenberg Unavailable [phone] Allergies No Known Allergies Reason For Referral Referring Provider First Name Ismael Referring Provider Last Name Judie Referring Provider Speciality General Pr actice Referred Organization [facility] Referred Provider Chidi Rosenberg Referred Address [address],[place], [place],[address], Referred Provider Specialty Gastroentero logy General Notes Chelly Akins 024 11:05:43 AM EDT > REQUESTED AN [facility] REFERRAL FOR PROCEDURE WITH DR ROSENBERG ON Monday01-01-2024. SPOKE WITH [facility] Referral Priority Routine Medications Medication SIG [...] Status Risk Notes Problem Colon cancer screening (800452626) Colon cancer screening (Z12.11) Active confirmed Problem Pre-procedure evaluation check (102947626) Encounter for other preprocedural examination (Z01.818) Active confirmed Problem Diverticulosis o f large intestine without perforation or abscess without bleeding (K57.30) Active confirmed Encounters Encounter Location Date Provider Diagnosis [facility] [address] [place], [place] [id number] 01/01/2024 Chidi Rosenberg Colon cancer nataleee simin Z12.11 ; Diverticulosis of large intestine [...] Insured Coverage Start Date Coverage End Date [facility] [address] [place] [address] [phone] [id number] EFRAIN SIMMONS Self - patient is the insured Medical (General) History Medical History History ICD Code ID in 2013 Denies DM,CVA,Lung disease,renal disease Hyperlipidemia Negative screening colonoscopy in his ea rly 50s with [address] Collier Surgical History Surgery Date(Month/Year) 3 V CABG 2012
[2024-10-11 15:03] VITALS: BP 118/82; PULSE 72; O2SAT 97; BMI 26.3
--- NOTE | 2024-10-11 15:03 | A.OFFPC_ITS ---
Vital Signs 10/11/24 15:03 Height 5 ft 4 in Weight 153 lb 2 oz BMI 26.3 BP 118/82 Blood Pressure Location Lt brachial Position Sitting Pulse 72 Pulse Source Pulse Oximeter Pulse Oximetry (%) 97 Oxygen Delivery Method Room Air Intake Visit Reasons: Transfer Care from Dr. 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 Accompanied by: Self / Same As Patient Allergies No Known Allergies Allergy (Verified 10/11/24 15:12) Medication List - Last Reconciled 10/11/24 by Sathya Garrison MD aspirin 81 mg PO DAILY atorvastatin 80 mg PO DAILY nitroglycerin 0.4 mg sublingual Q5M PRN Tobacco use date assessed: 10/11/24 Fall risk assessment: No Falls in past year Last assessed Fall Risk: 10/11/24 Dental Screening Dental Screen Date: 10/11/24 Did you have a dental visit in the last 12 months?: Yes Did you have a dental problem in the last 6 months where you did not have access to dental care?: No Was dental information given to patient?: Patient has dentist HPI Transfer Care from Dr. Dimas /VIKKI HPI Details Patient comes in today for his annual physical examination; is also transferring care over from Dr. Dimas, who retired from the practice a couple of months ago Patient states that he feels well He denies any headaches or dizziness Denies any chest pains, no SOB No nausea/vomiting, no abdominal pain No change in bowel habits noted He denies any acute urinary symptoms States that he continues to work out/exercise regularly and denies any chest pains or SOB with exertion when he is working out He had his cholesterol levels checked last June 2024; has not other follow up labs done recently He had his screening colonoscopy last done with Dr. Godinez last year on 01/01/2024 - was advised that his colonoscopy was normal and his next colonoscopy will be due in 10 years (2033) [facility] Medical History (Updated 10/11/24 @ 16:21 by Sathya Garrison MD) Overweight (BMI 25.0-29.9) Pure hypercholesterolemia Myocardial infarction Orthostatic hypotension Atherosclerotic cardiovascular disease Hyperlipidemia Surgical History (Updated 10/11/24 @ 16:14 by Sathya Garrison MD) H/O colonoscopy History of cardiac catheterization (~11/30/12) H/O heart bypass surgery (~02/26/13) History of tonsillectomy Family History Father Pulmonary embolism Mother Hypertension Heart disease Family/Other Diabetes CAD (coronary artery disease) Social History Housing: House Alcohol intake: current Alcohol intake frequency: does not drink Alcohol type: wine Patient Tobacco Use Status: Never used Tobacco Tobacco use type: Cigarette e-Cigarette/Vaping Use: Never Used Second Hand Smoke Exposure: No service: No Current occupational status: disabled Cognitive needs: No Hearing needs: No Vision needs: Yes Questionnaire PHQ-9 Over the last 2 weeks, how often have you been bothered by any of the following problems? 1. Little interest or pleasure in doing things: not at all 2. Feeling down, depressed, or hopeless: not at all 3. Trouble falling or staying asleep, or sleeping too much: not at all 4. Feeling tired or having little energy: not at all 5. Poor appetite or overeating: not at all 6. Feeling bad about yourself - or that you are a failure or have let yourself or your family down: not at all 7. Trouble concentrating on things, such as reading the newspaper or watching television: not at all 8. Moving or speaking so slowly that other people could have noticed. Or the opposite - being so fidgety or restless that you have been moving around a lot more than usual: not at all 9. Thoughts that you would be better off or of hurting yourself in some way: not at all Total score: 0 Depression Screening Interpretation: Negative Depression Screening Done: Yes 43747 - PHQ-9 Billing: Yes Source: Developed by Drs. Chidi Carrillo, Annette Paulino, Abhilash Monteiro and colleagues, with an educational iris from [employer]. Thrive Questionnaire Date Thrive assessed: 10/11/24 I am a: Patient What is your living situation today?: I have a steady place to live Within the past 12 months, did the food you bought not last and you didn't have the money to get more?: Never true Within the past 12 months, did you worry whether your food would run out before you got money to buy more?: Never true Do you have trouble paying for medicines?: No Do you have trouble getting transportation to medical appointments?: No Do you have trouble paying your heating and electricity bill?: No Do you have trouble taking care of your child, family member or friend?: No Do you have trouble with day-to-day activities such as bathing, preparing meals, shopping, managing finances, etc.?: No Are you currently unemployed and looking for a job?: No Are you interested in more education?: No Please select the resources that you would like help with: None Currently or been in a relationship where the following occur: No concerns reported THRIVE Score: 0 AUDIT C Alcohol Use Questionnaire (AUDIT-C) 1. How often do you have a drink containing alcohol?: Never 3. How often do you have six or more drinks on one occasion?: Never Total Score: 0 Score Reviewed/Action Taken: Yes CARISSA-7 AMB Questionnaire CARISSA-7 Date CARISSA - 7 assessed: 10/11/24 Feeling nervous, anxious, or on edge: 0 = Not at all Not being able to stop or control worryin = Not at all Worrying too much about different things: 0 = Not at all Trouble relaxin = Not at all Being so restless that it is hard to sit still: 0 = Not at all Becoming easily annoyed or irritable: 0 = Not at all Feeling afraid as if something awful might happen: 0 = Not at all Total CARISSA-7 score (0-4 normal; 5-9 mild; 10-14 moderate; 15-21 severe): 0 Source: Developed by Drs. Chidi Carrillo, Annette Paulino, Abhilash Monteiro and colleagues, with an educational iris from [employer]. Review of Systems Const Denies chills, Denies fatigue, Denies fever(s), Denies headache(s), Denies malaise and Denies weakness Eyes Denies blurry vision, Denies change in vision, Denies irritation and Denies itchy eyes ENT Denies dysphagia, Denies dizziness, Denies otalgia, Denies headache(s), Denies nasal congestion, Denies neck pain, Denies odynophagia and Denies sore throat Card Denies rapid heart rate, Denies irregular heart rhythm, Denies palpitations and Denies dyspnea Resp Denies chest congestion, Denies cough, Denies dyspnea and Denies wheezing GI Denies abdominal pain, Denies bloating, Denies constipation, Denies dysphagia, Denies heartburn, Denies diarrhea, Denies nausea, Denies odynophagia and Denies vomiting Denies hematuria, Denies difficulty urinating, Denies dysuria, Denies urinary frequency and Denies urinary urgency Musc Denies back pain, Denies arthralgias, Denies joint swelling, Denies muscle weakness and Denies neck pain Skin/Breast Denies change in pigmentation, Denies lesions, Denies rash and Denies unusual bruising Neuro Denies dizziness, Denies headache(s), Denies paresthesias and Denies weakness Endo Denies fatigue and Denies palpitations Aller/Immun Denies itchy eyes and Denies wheezing Physical exam (Primary Care) Vital Signs: Last Vital Signs Pulse 72 10/11/24 15:03 BP 118/82 10/11/24 15:03 Pulse Ox 97 10/11/24 15:03 Oxygen Delivery Method Room Air 10/11/24 15:03 BMI result Body Mass Index 26.3 Tobacco/Smoking Status: Tobacco use Status Tobacco use date assessed 10/11/24 10/11/24 15:08 Patient Tobacco Use Status Never used Tobacco 10/11/24 15:08 Tobacco use type Cigarette 10/11/24 15:08 e-Cigarette/Vaping Use Never Used 10/11/24 15:08 PHQ-9: PHQ-9 Score PHQ-9: Total score 0 10/11/24 15:08 Depression Screening Interpretation: Negative Thrive Assessment: Date of Thrive Assessment Date Thrive assessed 10/11/24 10/11/24 15:08 Currently or been in a relationship where the following occur: No concerns reported Const General: no acute distress, alert and awake Orientation/consciousness: patient oriented x3 HENMT Head: Yes normocephalic and Yes atraumatic Ears: external ears normal, TM's normal bilaterally and EAC's normal General nose exam: No nasal discharge present Face and sinus: Yes normal facial exam and Yes sinuses nontender Teeth and gingiva: dentition normal Throat: Yes posterior oropharynx normal and Yes tonsils normal (no TP congestion) Eyes Eyelids: Yes eyelids normal Conjunctivae: conjunctivae normal Pupils: Equal, round and reactive pupils present EOM: EOMs intact bilaterally Neck Neck: Yes no lymphadenopathy and Yes supple Thyroid: Thyroid normal Resp Auscultation: clear to auscultation bilaterally, no rales and no wheezes Cardio Rate: regular rate Rhythm: regular rhythm Heart sounds: no murmurs GI Palpation (GI): Soft to palpation, nontender and No hepatosplenomegaly present Auscultation: normal bowel sounds General: Yes no CVA tenderness Back/Spine/Pelvis Back: no CVA tenderness Thoracic/Lumbar Spine: thoracic and lumbar spine normal to inspection Skin Lesions: no lesions Rashes: no rashes Neuro General: patient oriented x3, moves all extremities, no focal motor deficits and CN's II-XI intact bilaterally Cranial nerves: Yes Equal, round and reactive pupils present Cognition (Neuro): normal cognition Gait exam (Neuro): Normal gait present Extrem General: Yes no clubbing, cyanosis or edema Results Reviewed Results Reviewed: Laboratory Tests 07/04/24 06:31 Triglycerides 46 Cholesterol 118 LDL Cholesterol, Calc 70 HDL Cholesterol 39 L Coding Level of Care Code Est Pt Prev Care 40-64y(56974) Diagnoses Annual physical exam Z00.00 Atherosclerotic cardiovascular disease I25.10 Pure hypercholesterolemia E78.00 Overweight (BMI 25.0-29.9) E66.3 Additional Codes PHQ-9 - 69816 - PHQ-9 Billing: Yes ([id number]) Assessment & Plan Assessment & Plan (1) Annual physical exam: Code(s): Z00.00 - Encounter for general adult medical examination without abnormal findings Category: Medical Plan: Check labs but advised patient to get these done just before he returns for his next appointment in about 4 months He is up-to-date with his colon cancer screening - had his colonoscopy done with Dr. Godinez last year on 01/01/2024 and he will be due for repeat colonoscopy in 10 years (2033) (2) Atherosclerotic cardiovascular disease: Comment: w/CABG 2012-follows with [facility] Code(s): I25.10 - Atherosclerotic heart disease of [place] coronary artery without angina pectoris Category: Medical Plan: S/P MD in 2013, with subsequent CABG x 3 - SINHA to LAD, VG to PDA, and radial graft to OM - procedure [place] [facility] Patient is currently asymptomatic from a cardiac standpoint Continue Aspirin 81 mg QD He also has sublingual Nitroglycerin 0.4 mg to take PRN for chest pains but patient has not needed to take this in a few years now Follow up with cardiology as scheduled (3) Pure hypercholesterolemia: Code(s): E78.00 - Pure hypercholesterolemia, unspecified Category: Medical Plan: Results of his cholesterol levels done back in June 2024 reviewed and discussed with patient - his cholesterol levels are at goal Reinforced low cholesterol diet Continue Atorvastatin 80 mg QD Will recheck his labs and fasting lipids in 4 months for follow up (4) Overweight (BMI 25.0-29.9): Code(s): E66.3 - Overweight Category: Medical Plan: Reinforced diet/exercise as tolerated/lose weight Plan Follow up in 4 months Orders: Orders Complete Blood Count Auto Diff 4 Months D64.9 - Anemia, unspecified Comprehensive [place]. Panel Fast 4 Months E78.00 - Pure hypercholesterolemia, unspecified Lipid Panel 4 Months E78.00 - Pure hypercholesterolemia, unspecified Vitamin D 25-OH Total 4 Months E55.9 - Vitamin D deficiency, unspecified, Z00.00 - Encounter for general adult medical examination without abnormal findings Prostate Specific Antigen 4 Months N40.0 - Benign prostatic hyperplasia without lower urinary tract symptoms, Z00.00 - Encounter for general adult medical examination without abnormal findings TSH reflex Free T4 4 Months E78.00 - Pure hypercholesterolemia, unspecified, Z00.00 - Encounter for general adult medical examination without abnormal findings UA CC w/rflx Micro + Cult 4 Months R30.0 - Dysuria, Z00.00 - Encounter for general adult medical examination without abnormal findings
== END 2024-10-11 15:23 | disposition home or self-care (01) ==
LOC: HO.HMCH 14:57
PROVIDERS: PCP Internal Medicine; Visit Provider Internal Medicine
DX: Z00.00 Encounter for general adult medical examination without abnormal findings (principal); I25.10 Atherosclerotic heart disease of native coronary artery without angina pectoris; E78.00 Pure hypercholesterolemia, unspecified; E66.3 Overweight

== ENCOUNTER → 2024-10-11 14:56 | Outpatient (BNVA) | payer BC, MEDICAID, SELFPAY | PROVIDERS: PCP Internal Medicine; Visit Provider Internal Medicine | DX: Z00.00 Encounter for general adult medical examination without abnormal findings (principal); I25.10 Atherosclerotic heart disease of native coronary artery without angina pectoris; E78.00 Pure hypercholesterolemia, unspecified; E66.3 Overweight; Z68.26 Body mass index [BMI] 26.0-26.9, adult; I25.2 Old myocardial infarction; Z79.82 Long term (current) use of aspirin; Z79.899 Other long term (current) drug therapy; Z95.1 Presence of aortocoronary bypass graft; Z13.30 Encounter for screening examination for mental health and behavioral disorders, unspecified; Z13.31 Encounter for screening for depression | CPT/HCPCS: 96127 ==

== ENCOUNTER 2025-02-19 06:10 | Outpatient (REF) | payer BC, MEDICAID, SELFPAY ==
--- OUTSIDE RECORDS SUMMARY | 2024-01-01 05:30 | XMS_ITS ---
Author Organization [facility] Address [address] [place] [address] Care Team Providers Care Director Radio [employer] Name Role Phone Ismael Dimas MD Primary Care Provider Chidi Woods [phone] REASON FOR VISIT screening Problems Problem Type SNOMED Code ICD Code Onset Dates Problem Status W/U Status Risk Notes Problem Diverticular disease of colon (629940330) Diverticulosis of large intestine without perforation or abscess without bleeding (K57.30) Active confirmed Encounters Encounter Location Date Provider Diagnosis [facility] Out[facility] [address] [place], [place] [id number] 01/01/2024 Chidi Godinez Colon cancer scree simin Z12.11 ; Diverticulosis of large intestine without perforation or abscess without bleeding K57.30 and Other hemorrhoids K64.8 Assessments Encounter Date Diagnosis (ICD Code) Assessment Notes Treatment Notes Treatment Clinical Notes Section Notes 01/01/2024 Colon cancer screening (ICD-10 - Z12.11) 01/01/2024 Diverticulosis of large intestine without perforation or abscess without bleeding (ICD-10 - K57.30) 01/01/2024 Other hemorrhoids (ICD-10 - K64.8) Plan Of Treatment No Information Progress Notes * EFRAIN SIMMONSDOB: (64 yo M)Acc No.[id number]:01/01/2024 COLON WITH MAC Patient: Gian BLEVINSAYALA EFRAIN Provider: Samir Godinez MD :1960 A ge:63 Y S ex:Male Date:01/01/2024 Address:[address] [place] [address] [id number] Pcp:Ismael Dimas MD Subjective: * Chief Complaints: * 1 . Screening. * Medical History: Objective: * Vitals: Assessment: * Assessment: 1. C olon cancer screening - Z12.11 (Primary) 2 . D iverticulosis of large intestine without perforation or abscess without bleeding - K57.30 3 . O ther hemorrhoids - K64.8 Plan: * Treatment: * Procedure Codes: 4 5378 DIAGNOSTIC COLONOSCOPY, Modifiers: 33 * * The named appointment provid er may or may not be the originator of this progress note, and it is not deemed complete until electronically signed by the appointment provider. Sign off status: Pending * Provider: Samir Godinez MD Date: 0 01/01/2024 Generated for Gino diaz/Aditi/Brittanyitting on: 1 06:13 AM EDT
--- OUTSIDE RECORDS SUMMARY | 2025-02-19 06:13 | XMS_ITS | Patient Health Record ---
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 Name Role Phone Ismael Dimas MD Primary Care Provider Chidi Woods [phone] Allergies No Known Allergies Reason For Referral No Information Medications Medication SIG (Take, Route, Frequency, Duration) [...] Status Risk Notes Problem Colon cancer screening (021010180) Colon cancer screening (Z12.11) Active confirmed Problem Pre-procedure evaluation check (655521562) Encounter for other preprocedural examination (Z01.818) Active confirmed Problem Diverticular disease of colon (580053521) Diverticulosis of large intestine without perforation or abscess without bleeding (K57.30) Active confirmed Plan Of Treatment Future Test Test Name Order Date COLONOSCOPY 09/26/2023 Insurance Providers Payer Name Payer Address Payer Phone Subscriber Number Group Number Insured Name Patient Relationship to Insured Coverage Start Date Coverage End Date [facility] [address] [place] [address] [id number] EFRAIN SIMMONS Self - patient is the insured Medical (General) History Medical History History ICD Code IA in 2013 Denies DM,CVA,Lung disease,renal disease Hyperlipidemia Negative screening colonoscopy in his ea rly 50s [address] Collier Surgical History Surgery Date(Month/Year) 3 V CABG 2012
[2025-02-19 06:28] LABS: MANUAL DIFF FLAG NO
[2025-02-19 07:47] LABS: Hematocrit 46.4 % (42.0-52.0); Hemoglobin 15.0 g/dl (14.0-18.0); Imm Gran Abs Auto 0.01 X10*3/uL (0.00-0.03); Imm Gran Pct Auto 0.2 % (0.0-0.4); Lymphocytes Absolute Auto 1.6 X10*3/uL (1.2-4.9); Mean Corpuscular HGB Conc 32.3 g/dl (31.0-36.0); Mean Corpuscular Hemoglobin 28.1 pg (27.0-33.0); Mean Corpuscular Volume 87.1 fL (80.0-98.0); NRBC Abs Auto 0.000 X10*3/uL (0.0-0.012); NRBC Pct Auto 0.0 /100WBC (0.0-0.2); Platelet Count 155 X10*3/uL (160-400); Red Blood Count 5.33 X10*6/uL (4.60-5.80); White Blood Count 4.5 X10*3/uL (4.8-10.8)
[2025-02-19 08:03] LABS: Appearance Urine Clear; Glucose Urine UA Negative (Negative); PH 6.0 (5.0-9.0); Specific Gravity - Urine 1.025 (1.005-1.025)
[2025-02-19 08:36] LABS: Alanine Aminotransferase 32 U/L (0-40); Albumin Level 4.4 g/dL (3.5-5.0); Alkaline Phosphatase 61 U/L (39-117); Anion Gap 11 (12-20); Aspartate Amino Transferase 32 U/L (5-37); Blood Urea Nitrogen 19 mg/dL (9-16); Calcium 8.9 mg/dL (8.4-10.2); Carbon Dioxide 27 mmol/L (22-29); Chloride 108 mmol/L (96-108); Cholesterol 109 mg/dL (<200); Estimated Glomerular Filt Rate > 60; HDL Cholesterol 35 mg/dL (>40); Potassium 3.8 mmol/L (3.3-5.1); Sodium 142 mmol/L (135-145); Total Protein 6.7 g/dL (6.5-8.0); Triglycerides 51 mg/dL (<150)
[2025-02-19 08:41] LABS: Prostate Specific Antigen 0.86 ng/mL (<0.05-4.0)
== END 2025-02-19 06:11 | disposition home or self-care (01) ==
LOC: HO.LAB 06:10
PROVIDERS: PCP Internal Medicine; Visit Provider Internal Medicine
DX: Z00.00 Encounter for general adult medical examination without abnormal findings (principal); E55.9 Vitamin D deficiency, unspecified; N40.0 Benign prostatic hyperplasia without lower urinary tract symptoms; D64.9 Anemia, unspecified; E78.00 Pure hypercholesterolemia, unspecified; R30.0 Dysuria; Z12.5 Encounter for screening for malignant neoplasm of prostate
CPT/HCPCS: 36415; 80053; 80061; 81003; 82306; 84153; 84443; 85025

== ENCOUNTER 2025-02-21 09:13 | Outpatient (AMB) | payer BC, MEDICAID, SELFPAY ==
--- OUTSIDE RECORDS SUMMARY | 2024-01-01 05:30 | XMS_ITS ---
Author Organization [facility] Address [address] [place] [address] Care Team Providers Care Environmental Technology Professor Name Role Phone Ismael Dimas MD Primary Care Provider Chidi Woods [phone] REASON FOR VISIT screening Problems Problem Type SNOMED Code ICD Code Onset Dates Problem Status W/U Status Risk Notes Problem Diverticular disease of colon (986895583) Diverticulosis of large intestine without perforation or abscess without bleeding (K57.30) Active confirmed Encounters Encounter Location Date Provider Diagnosis [facility] Outpatient [address] [place], [place] [id number] 01/01/2024 Chidi Godinez Colon cancer scree simin [...] Notes * EFRAIN SIMMONSDOB: (64 yo M)Acc No.[id number]:01/01/2024 COLON WITH MAC Patient: Gian BLEVINSAYALA EFRAIN Provider: Samir Godinez MD :1960 A ge:63 Y S ex:Male Date:01/01/2024 Address:[address] [place] [address] [id number] Pcp:Ismael Dimas MD Subjective: * Chief Complaints: [...] 01/01/2024 Generated for Gino diaz/Aditi/Brittanyitting on: 1 09:40 AM EDT
[2025-02-21 09:15] VITALS: BP 110/80; PULSE 65; O2SAT 95; BMI 25.8
--- NOTE | 2025-02-21 09:15 | MHC.PC.OV ---
Vital Signs 02/21/25 09:15 Height 5 ft 4 in Weight 150 lb 4 oz BMI 25.8 BP 110/80 Blood Pressure Location Lt brachial Position Sitting Pulse 65 Pulse Source Pulse Oximeter Pulse Oximetry (%) 95 Oxygen Delivery Method Room Air Intake Visit Reasons: 4 month Echocardiologist Required: No Accompanied by: Self / Same As Patient Allergies No Known Allergies Allergy (Verified 02/21/25 09:39) Medication List - Last Reconciled 02/21/25 by Sathya Garrison MD aspirin 81 mg PO DAILY atorvastatin 80 mg PO DAILY nitroglycerin 0.4 mg sublingual Q5M PRN Tobacco use date assessed: 02/21/25 Fall risk assessment: No Falls in past year Last assessed Fall Risk: 02/21/25 Dental Screening Dental Screen Date: 02/21/25 Did you have a dental visit in the last 12 months?: Yes Did you have a dental problem in the last 6 months where you did not have access to dental care?: No Was dental information given to patient?: Patient has dentist HPI 4 month HPI Details Patient comes in today for his follow up visit Patient states that he feels okay He denies any headaches or dizziness Denies any chest pains, no SOB No nausea/vomiting, no abdominal pain No change in bowel habits noted States that he continues to work out/exercise regularly and denies any chest pains/pressure or SOB with exertion when he is working out States that he would also like to get his flu shot today He had his follow up labs done a couple of days ago - to discuss his results [facility] Medical History (Updated 02/21/25 @ 09:47 by Sathya Garrison MD) Vitamin D deficiency Overweight (BMI 25.0-29.9) Pure hypercholesterolemia Myocardial infarction Orthostatic hypotension Atherosclerotic cardiovascular disease Hyperlipidemia Surgical History H/O colonoscopy History of cardiac catheterization (~11/30/12) H/O heart bypass surgery (~02/26/13) History of tonsillectomy Family History Father Pulmonary embolism Mother Hypertension Heart disease Family/Other Diabetes CAD (coronary artery disease) Social History Housing: House Alcohol intake: current Alcohol intake frequency: does not drink Alcohol type: wine Patient Tobacco Use Status: Never used Tobacco Tobacco use type: Cigarette e-Cigarette/Vaping Use: Never Used Second Hand Smoke Exposure: No service: No Current occupational status: disabled Cognitive needs: No Hearing needs: No Vision needs: Yes Questionnaire Thrive Questionnaire Date Thrive assessed: 10/11/24 I am a: Patient What is your living situation today?: I have a steady place to live Within the past 12 months, did the food you bought not last and you didn't have the money to get more?: Never true Within the past 12 months, did you worry whether your food would run out before you got money to buy more?: Never true Do you have trouble paying for medicines?: No Do you have trouble getting transportation to medical appointments?: No Do you have trouble paying your heating and electricity bill?: No Do you have trouble taking care of your child, family member or friend?: No Do you have trouble with day-to-day activities such as bathing, preparing meals, shopping, managing finances, etc.?: No Are you currently unemployed and looking for a job?: No Are you interested in more education?: No Please select the resources that you would like help with: None Currently or been in a relationship where the following occur: No concerns reported THRIVE Score: 0 AUDIT C Alcohol Use Questionnaire (AUDIT-C) 1. How often do you have a drink containing alcohol?: Never 3. How often do you have six or more drinks on one occasion?: Never Total Score: 0 Score Reviewed/Action Taken: Yes CARISSA-7 AMB Questionnaire CARISSA-7 Date CARISSA - 7 assessed: 10/11/24 Source: Developed by Drs. Chidi Carrillo, Annette Paulino, Abhilash Monteiro and colleagues, with an educational iris from [employer]. Review of Systems Const Denies chills, Denies fatigue, Denies fever(s) and Denies headache(s) ENT Denies dysphagia, Denies dizziness, Denies otalgia, Denies headache(s), Denies neck pain, Denies odynophagia and Denies sore throat Card Denies rapid heart rate, Denies irregular heart rhythm, Denies palpitations and Denies dyspnea Resp Denies chest congestion, Denies cough and Denies dyspnea GI Denies abdominal pain, Denies constipation, Denies dysphagia, Denies heartburn, Denies diarrhea, Denies nausea, Denies odynophagia and Denies vomiting Denies difficulty urinating, Denies dysuria and Denies urinary frequency Musc Denies back pain, Denies arthralgias and Denies neck pain Skin/Breast Denies rash Neuro Denies dizziness, Denies headache(s) and Denies paresthesias Endo Denies fatigue and Denies palpitations Physical exam (Primary Care) Vital Signs: Last Vital Signs Pulse 65 02/21/25 09:15 BP 110/80 02/21/25 09:15 Pulse Ox 95 02/21/25 09:15 Oxygen Delivery Method Room Air 02/21/25 09:15 BMI result Body Mass Index 25.8 Tobacco/Smoking Status: Tobacco use Status Tobacco use date assessed 02/21/25 02/21/25 09:22 Patient Tobacco Use Status Never used Tobacco 02/21/25 09:22 Tobacco use type Cigarette 02/21/25 09:22 e-Cigarette/Vaping Use Never Used 02/21/25 09:22 Thrive Assessment: Date of Thrive Assessment Date Thrive assessed 10/11/24 02/21/25 09:22 Currently or been in a relationship where the following occur: No concerns reported Const General: no acute distress and alert HENMT Ears: TM's normal bilaterally and EAC's normal Throat: Yes posterior oropharynx normal and Yes tonsils normal (no TP congestion) Neck Neck: Yes no lymphadenopathy and Yes supple Thyroid: Thyroid normal Resp Auscultation: clear to auscultation bilaterally, no rales and no wheezes Cardio Rate: regular rate Rhythm: regular rhythm Heart sounds: no murmurs GI Palpation (GI): Soft to palpation and nontender Auscultation: normal bowel sounds General: Yes no CVA tenderness Back/Spine/Pelvis Back: no CVA tenderness Thoracic/Lumbar Spine: No lumbar spinal tenderness Skin Rashes: no rashes Extrem General: Yes no clubbing, cyanosis or edema Office Procedures Flu Questionnaire Does the patient have a severe egg allergy?: No Does the patient have severe life threatening allergies?: No Does the patient have a fever or illness today?: No Has the patient ever had Guillain-[place] Syndrome?: No Has the patient ever had any past reaction to a flu shot?: No Immunizations Fluarix [id number] (PF) 45 mcg (15 mcg x 3)/0.5 mL IM syringe Performing Provider: Sathya Garrison MD [facility] Administered by: DONTE Lam on 02/21/25 09:53 Dose Route Admin Location Dispensed Lot Number Expiration Date [facility] [employer] F[employer] And President 0.5 mL IM Left Deltoid 0.5 mL [id number] 11/11/25 [id number] [employer] VIS Given Date VIS Provided VIS Publication Date 02/21/25 Single Vaccine 24 Eligibility Eligibility Date Funding Source Not [facility] Eligible 02/21/25 Private Results Reviewed Results Reviewed: Laboratory Tests 02/19/25 02/19/25 06:26 06:30 WBC 4.5 L Hgb 15.0 Hct 46.4 Plt Count 155 L Sodium 142 Potassium 3.8 Creatinine 0.98 Estimated GFR > 60 Fasting Glucose 105 H Calcium 8.9 AST 32 ALT 32 Albumin 4.4 Triglycerides 51 Cholesterol 109 LDL Cholesterol, Calc 64 HDL Cholesterol 35 L Prostate Specific Ag 0.86 25-OH Vitamin D Total 23.7 L TSH 3.25 Ur Specific [place] 1.025 Urine Protein Negative Urine Glucose (UA) Negative Urine Blood Negative Urine Nitrite Negative Ur Leukocyte Esterase Negative Coding Level of Care Code Est Pt Level 4 (94023) Diagnoses Atherosclerotic cardiovascular disease I25.10 Pure hypercholesterolemia E78.00 Impaired fasting glucose R73.01 Vitamin D deficiency E55.9 Overweight (BMI 25.0-29.9) E66.3 Assessment & Plan Assessment & Plan (1) Atherosclerotic cardiovascular disease: Comment: w/CABG 2012-follows with [facility] Code(s): I25.10 - Atherosclerotic heart disease of wiyot coronary artery without angina pectoris Category: Medical Plan: S/P AK in 2013, with subsequent CABG x 3 - SINHA to LAD, VG to PDA, and radial graft to OM - procedure was done by Dr Brewster at [facility] Patient is currently asymptomatic from a cardiac standpoint Continue Aspirin 81 mg QD He also has sublingual Nitroglycerin 0.4 mg to take PRN for chest pains but patient has not needed to take this in a few years now Follow up with cardiology as scheduled (2) Pure hypercholesterolemia: Code(s): E78.00 - Pure hypercholesterolemia, unspecified Category: Medical Plan: Results of his labs done back a couple of days ago reviewed and discussed with patient Reinforced low cholesterol diet Continue Atorvastatin 80 mg QD Will recheck his labs and fasting lipids in 4 months for follow up (3) Impaired fasting glucose: Code(s): R73.01 - Impaired fasting glucose Category: Medical Plan: He is advised that his FBS is just slightly above the cut-off for normal fasting glucose level Discussed low calorie/low carb diet Will recheck his FBS and also check his HgbA1c in a few months for follow up (4) Vitamin D deficiency: Code(s): E55.9 - Vitamin D deficiency, unspecified Category: Medical Plan: He is advised that his Vitamin D level was low on his recent labs Will start him on Vitamin D3 2000 units QD Will recheck his Vitamin D level in a few months for follow up (5) Overweight (BMI 25.0-29.9): Code(s): E66.3 - Overweight Category: Medical Plan: Reinforced diet/exercise as tolerated/lose weight Plan Per request, flu vaccine given to patient today Follow up in 4 months Orders: Orders Complete Blood Count Auto Diff 4 Months D64.9 - Anemia, unspecified Hemoglobin A1c 4 Months R73.01 - Impaired fasting glucose Comprehensive [place]. Panel Fast 4 Months E78.00 - Pure hypercholesterolemia, unspecified Lipid Panel 4 Months E78.00 - Pure hypercholesterolemia, unspecified UA CC w/rflx Micro + Cult 4 Months R30.0 - Dysuria Vitamin D 25-OH Total 4 Months E55.9 - Vitamin D deficiency, unspecified Influenza [id number] Immunization Today Z23 - Encounter for immunization Medications: New cholecalciferol (vitamin D3) 50 mcg PO DAILY 90 caps 3RF 90 days E55.9 - Vitamin D deficiency, unspecified
--- OUTSIDE RECORDS SUMMARY | 2025-02-21 09:40 | XMS_ITS | Patient Health Record ---
Author Organization [facility] Address [address] [place] [address] Care Team Providers Care Vice President Network Name Role Phone Ismael Dimas MD Primary Care Provider Chidi Woods [phone] Allergies No Known Allergies Reason For Referral No Information Medications Medication SIG (Take, Route, Frequency, Duration) Notes Start Date End Date Status Atorvastatin Calcium 80 MG Oral; Duration: 90 Active Aspirin Low Dose 81 MG TAKE 1 TABLET BY MOUTH ONCE DAILY Oral; Duration: 90 Active Social History Tobacco Use: Social [...] Status Risk Notes Problem Colon cancer screening (322899007) Colon cancer screening (Z12.11) Active confirmed Problem Pre-procedure evaluation check (776067709) Encounter for other preprocedural examination (Z01.818) Active confirmed Problem Diverticular disease of colon (378417902) Diverticulosis of large intestine without perforation or abscess without bleeding (K57.30) Active confirmed Plan Of Treatment Future Test Test Name Order Date COLONOSCOPY 09/26/2023 Insurance Providers Payer Name Payer Address Payer Phone Subscriber Number Group Number Insured Name Patient Relationship to Insured Coverage Start Date Coverage End Date [facility] [employer] [address] [place] [address] [phone] [id number] EFRAIN SIMMONS Self - patient is the insured Medical (General) History Medical History History ICD Code [place] in 2013 Denies DM,CVA,Lung disease,renal disease Hyperlipidemia Negative screening colonoscopy in his ea rly 50s [address] Collier Surgical History Surgery Date(Month/Year) 3 V CABG 2012
== END 2025-02-21 09:55 | disposition home or self-care (01) ==
LOC: HO.HMCH 09:14
PROVIDERS: PCP Internal Medicine; Visit Provider Internal Medicine
DX: I25.10 Atherosclerotic heart disease of native coronary artery without angina pectoris (principal); E78.00 Pure hypercholesterolemia, unspecified; R73.01 Impaired fasting glucose; E55.9 Vitamin D deficiency, unspecified; E66.3 Overweight; Z23 Encounter for immunization

== ENCOUNTER → 2025-02-21 09:13 | Outpatient (BNVA) | payer BC, MEDICAID, SELFPAY | PROVIDERS: PCP Internal Medicine; Visit Provider Internal Medicine | DX: I25.10 Atherosclerotic heart disease of native coronary artery without angina pectoris (principal); Z23 Encounter for immunization; E78.00 Pure hypercholesterolemia, unspecified; R73.01 Impaired fasting glucose; E55.9 Vitamin D deficiency, unspecified; E66.3 Overweight; Z68.25 Body mass index [BMI] 25.0-25.9, adult; I25.2 Old myocardial infarction; Z79.82 Long term (current) use of aspirin; Z79.899 Other long term (current) drug therapy; Z95.1 Presence of aortocoronary bypass graft | CPT/HCPCS: 90471; 90656 ==